=== PATIENT | female | born 1945 | race American Indian/Alaskan Native ===

== ENCOUNTER 2022-03-15 15:56 | Inpatient (IN) | payer MEDICARE, MEDICAID ==
[~2022-03-15] VITALS: Ht 165.1 cm; Wt 81.2 kg
[2022-03-15] MEDS ORDERED: NALOXONE HCL 1 MG/ML 2ML VIAL IV ONE (16:30)
[2022-03-15] MEDS ORDERED: SODIUM CHLORIDE 0.9% 1,000 ML IV ONE (17:00)
[2022-03-15 17:02] LABS: BG BASE EXCESS -0.6 mmol/L (-2.0-2.0); BG CARBOXYHEMOGLOBIN 0.2 % (0.5-1.5); BG DEOXYHEMOGLOBIN 3.5 % (0.0-5.0); BG HCO3 ACT 22.8 mmol/L (22.0-26.0); BG OXYGEN SATURATION 96.5 % (92.0-98.5); BG OXYHEMOGLOBIN 96.3 % (94.0-97.0); BG PCO2 33.7 mmHg (35.0-45.0); BG PH 7.448 (7.350-7.450); BG PO2 83.4 mmHg (75.0-100.0); BG SAMPLE SITE RIGHT BRACHIAL; BG TOTAL HEMOGLOBIN 13.5 g/dL (12.0-18.0); BG VENT MODE ROOM AIR
[2022-03-15 17:57] LABS: BASOPHILS % 0.2 % (0.0-2.0); HEMATOCRIT. 36.4 % (36.0-48.0); HEMOGLOBIN. 11.8 g/dL (12.0-16.0); LYMPHOCYTES % 7.8 % (20.0-50.0); MEAN CORPUSCULAR HEMOGLOBIN 29.7 pg (28.0-32.0); MEAN CORPUSCULAR VOLUME 91.7 fL (81.0-99.0); MEAN PLATELET VOLUME 8.1 fl (7.4-10.4); MONOCYTES % 4.6 % (2.0-8.0); NEUTROPHILS % 87.4 % (40.0-76.0); PLATELET 116 x1000/uL (130-400); RED BLOOD CELL COUNT 3.97 mill/uL (4.2-5.4); RED CELL DISTRIBUTION WIDTH 12.3 % (11.6-14.6)
[2022-03-15 18:05] LABS: INR 1.1
[2022-03-15] MEDS ORDERED: LORAZEPAM 2MG/ML CPJ IV ONE (18:30)
[2022-03-15] MEDS ORDERED: MIDAZOLAM HCL 100 MG in DEXT 5% WATER 80 ML IV ONE (18:30)
[2022-03-15] MEDS ORDERED: HEPARIN 80 UNITS/KG BOLUS IV SCH ×2 (18:30→19:30)
[2022-03-15] MEDS ORDERED: HEPARIN 25,000 UNITS PREMIX 250 ML IV SCH ×3 (18:30→19:30)
[2022-03-15] MEDS ORDERED: ETOMIDATE 2MG/ML 10ML VIAL IV ONE (18:30)
[2022-03-15 18:39] LABS: CHLORIDE 97 mEq/L (98-107)
[2022-03-15 18:47] LABS: ETHANOL BLOOD < 10 mg/dL
[2022-03-15] MEDS ORDERED: IOHEXOL-350 100 ML BOTTLE ONE ×2 (18:52→20:28)
[2022-03-15] MEDS ORDERED: LEVETIRACETAM 1000MG PREMIX 100 ML IV ONE (19:15)
[2022-03-15 19:27] LABS: CREATINE KINASE 2036 IU/L (26-192)
[2022-03-15 21:10] LABS: CLARITY URINE CLEAR (CLEAR); COLOR URINE YELLOW (YELLOW); KETONES URINE TRACE (NEGATIVE); LEUKOCYTE ESTERASE URINE NEGATIVE (NEGATIVE); NITRITE URINE NEGATIVE (NEGATIVE); OCCULT BLOOD URINE 1+ (NEGATIVE); PH URINE 5.5 (4.5-8.0); PROTEIN URINE NEGATIVE (NEGATIVE); SPECIFIC GRAVITY URINE 1.018 (1.005-1.030); UROBILINOGEN URINE 0.2 E.U./dL (0.2-1.0)
[2022-03-15 22:46] LABS: *AMPHETAMINES SCREEN URINE NEGATIVE (NEGATIVE); *BARBITURATES SCREEN URINE NEGATIVE (NEGATIVE); *BENZODIAZEPINES SCREEN URINE NEGATIVE (NEGATIVE); *COCAINE SCREEN URINE NEGATIVE (NEGATIVE); CANNABINOID URINE SCREEN NEGATIVE (NEGATIVE); METHADONE URINE SCREEN NEGATIVE (NEGATIVE); OPIATES URINE SCREEN NEGATIVE (NEGATIVE); PHENCYCLIDINE URINE SCREEN NEGATIVE (NEGATIVE)
[2022-03-15 22:49] LABS: BG BASE EXCESS -5.1 mmol/L (-2.0-2.0); BG CARBOXYHEMOGLOBIN 0.3 % (0.5-1.5); BG DEOXYHEMOGLOBIN 0.4 % (0.0-5.0); BG FRACTION INSPIRED OXYGEN 70; BG HCO3 ACT 16.6 mmol/L (22.0-26.0); BG METHEMOGLOBIN 0.1 % (0.0-1.5); BG OXYGEN SATURATION 99.6 % (92.0-98.5); BG OXYHEMOGLOBIN 99.2 % (94.0-97.0); BG PCO2 23.1 mmHg (35.0-45.0); BG PH 7.475 (7.350-7.450); BG PO2 376.7 mmHg (75.0-100.0); BG SAMPLE SITE RIGHT BRACHIAL; BG TOTAL HEMOGLOBIN 13.1 g/dL (12.0-18.0); BG VENT MODE VENT - AC
[2022-03-16] VITALS (35 sets, daily range): BP systolic 61–147; BP diastolic 29–109
[2022-03-16] MEDS ORDERED: HEPARIN BOLUS PRN aPTT <36 IV (01:30)
[2022-03-16] MEDS ORDERED: HEPARIN BOLUS PRN aPTT 37-44 IV (01:30)
[2022-03-16] MEDS ORDERED: PIPERACILLIN/TAZ 3.375G PREMIX 50 ML IV NR (12:00)
[2022-03-16] MEDS: PANTOPRAZOLE SODIUM 40 MG/VIAL IV SCH ×2 (12:47→20:15)
[2022-03-16] MEDS ORDERED: ONDANSETRON HCL 4MG/2ML INJ IV PRN (14:00)
[2022-03-16 14:59] LABS: BG BASE EXCESS -4.8 mmol/L (-2.0-2.0); BG CARBOXYHEMOGLOBIN 0.3 % (0.5-1.5); BG DEOXYHEMOGLOBIN 0.8 % (0.0-5.0); BG FRACTION INSPIRED OXYGEN 40; BG HCO3 ACT 15.6 mmol/L (22.0-26.0); BG METHEMOGLOBIN 0.3 % (0.0-1.5); BG OXYGEN SATURATION 99.2 % (92.0-98.5); BG OXYHEMOGLOBIN 98.6 % (94.0-97.0); BG PCO2 19.1 mmHg (35.0-45.0); BG PH 7.529 (7.350-7.450); BG PO2 170.1 mmHg (75.0-100.0); BG SAMPLE SITE RIGHT RADIAL; BG VENT MODE VENT - AC
[2022-03-16] MEDS ORDERED: SODIUM BICARBONATE 8.4% 1 MEQ/ML 50ML SYR IV NR (15:00)
[2022-03-16 17:40] LABS: BASOPHILS % 0.8 % (0.0-2.0); EOSINOPHILS % 0.2 % (0.0-5.0); HEMOGLOBIN. 11.8 g/dL (12.0-16.0); LYMPHOCYTES % 13.9 % (20.0-50.0); MEAN CORPUSCULAR HEMOGLOBIN 29.5 pg (28.0-32.0); MEAN CORPUSCULAR VOLUME 90.1 fL (81.0-99.0); MEAN PLATELET VOLUME 8.9 fl (7.4-10.4); MONOCYTES % 8.8 % (2.0-8.0); NEUTROPHILS % 76.3 % (40.0-76.0); PLATELET 218 x1000/uL (130-400); RED BLOOD CELL COUNT 3.99 mill/uL (4.2-5.4); RED CELL DISTRIBUTION WIDTH 12.5 % (11.6-14.6)
[2022-03-16] MEDS ORDERED: NAPR-681 PO (17:40)
[2022-03-16] MEDS ORDERED: GABA-532 PO (17:40)
[2022-03-16] MEDS ORDERED: RISP1TAB97 PO (17:40)
[2022-03-16] MEDS ORDERED: ASCO500C18 PO (17:40)
[2022-03-16] MEDS ORDERED: TRAM50TA3 PO (17:40)
[2022-03-16] MEDS ORDERED: ALPR-340 PO (17:40)
[2022-03-16] MEDS ORDERED: LOSA100T32 PO (17:40)
[2022-03-16] MEDS ORDERED: FAMO20TA8 PO (17:40)
[2022-03-16] MEDS ORDERED: POTA8CAP20 PO (17:40)
[2022-03-16 17:46] LABS: CHLORIDE 103 mEq/L (98-107)
[2022-03-16 18:04] LABS: CREATINE KINASE MB FRACTION 8.1 ng/mL (0.5-3.6)
[2022-03-16] MEDS: PHENYLEPHRINE 100 MG in DEXT 5% WATER 240 ML IV PRN (18:04)
[2022-03-16 18:07] LABS: CREATINE KINASE 1415 IU/L (26-192)
[2022-03-16] MEDS ORDERED: DEXTROSE 50% WATER 50ML SYRINGE IV PRN (20:00)
[2022-03-16] MEDS: BLOOD SUGAR DIAGNOSTIC STRIP TEST SCH (20:34)
[2022-03-16] MEDS: INSULIN LISPRO 100 UNITS/ML SUBCUT SCH (20:35)
[2022-03-16] MEDS ORDERED: PIPERACILLIN/TAZOBACTAM 3.375 G in DEXTROSE 5% WATER 50 ML IV SCH (22:00)
[2022-03-16] MEDS: PIPERACILLIN/TAZOBACTAM 3.375 G in DEXTROSE 5% WATER 50 ML IV SCH (23:11)
[2022-03-17] VITALS (92 sets, daily range): BP systolic 66–170; BP diastolic 27–116
[2022-03-17 00:15] LABS: CREATINE KINASE MB FRACTION 10.3 ng/mL (0.5-3.6)
[2022-03-17] MEDS: MIDAZOLAM HCL 100 MG in SODIUM CHLORIDE 0.9% 80 ML IV PRN (02:53)
[2022-03-17] MEDS: PHENYLEPHRINE 100 MG in DEXT 5% WATER 240 ML IV PRN ×2 (04:48→14:05)
[2022-03-17 05:49] LABS: BASOPHILS % 0.5 % (0.0-2.0); HEMATOCRIT. 34.9 % (36.0-48.0); HEMOGLOBIN. 11.7 g/dL (12.0-16.0); LYMPHOCYTES % 15.5 % (20.0-50.0); MEAN CORPUSCULAR VOLUME 89.8 fL (81.0-99.0); MONOCYTES % 9.5 % (2.0-8.0); NEUTROPHILS % 74.5 % (40.0-76.0); PLATELET 232 x1000/uL (130-400); RED BLOOD CELL COUNT 3.89 mill/uL (4.2-5.4); RED CELL DISTRIBUTION WIDTH 12.6 % (11.6-14.6)
[2022-03-17] MEDS: PIPERACILLIN/TAZOBACTAM 3.375 G in DEXTROSE 5% WATER 50 ML IV SCH ×3 (06:01→22:36)
[2022-03-17 06:16] LABS: CHLORIDE 102 mEq/L (98-107)
[2022-03-17] MEDS: INSULIN LISPRO 100 UNITS/ML SUBCUT SCH ×4 (07:51→21:00)
[2022-03-17] MEDS: BLOOD SUGAR DIAGNOSTIC STRIP TEST SCH ×4 (07:51→21:00)
[2022-03-17] MEDS: PANTOPRAZOLE SODIUM 40 MG/VIAL IV SCH ×2 (08:02→21:33)
[2022-03-17] MEDS ORDERED: DEXT 5%/0.45% NACL 1000ML 1,000 ML IV SCH (08:45)
[2022-03-17 09:15] LABS: BG BASE EXCESS -3.4 mmol/L (-2.0-2.0); BG CARBOXYHEMOGLOBIN 0.3 % (0.5-1.5); BG DEOXYHEMOGLOBIN 0.8 % (0.0-5.0); BG FRACTION INSPIRED OXYGEN 40; BG HCO3 ACT 18.1 mmol/L (22.0-26.0); BG METHEMOGLOBIN 0.3 % (0.0-1.5); BG OXYGEN SATURATION 99.2 % (92.0-98.5); BG OXYHEMOGLOBIN 98.6 % (94.0-97.0); BG PCO2 23.9 mmHg (35.0-45.0); BG PH 7.498 (7.350-7.450); BG PO2 190.6 mmHg (75.0-100.0); BG SAMPLE SITE LEFT BRACHIAL; BG TOTAL HEMOGLOBIN 12.4 g/dL (12.0-18.0); BG VENT MODE VENT - AC
[2022-03-17 09:21] LABS: CREATINE KINASE 1223 IU/L (26-192)
[2022-03-17] MEDS ORDERED: LIDOCAINE HCL 1% 10 MG/ML 10ML VIAL ONE (10:29)
[2022-03-17] MEDS: DEXT 5%/0.9% NACL 1,000 ML IV SCH (11:04)
[2022-03-17] MEDS: ENOXAPARIN 80MG/0.8ML SYR SUBCUT SCH (13:53)
[2022-03-18] VITALS (80 sets, daily range): BP systolic 96–178; BP diastolic 30–80
[2022-03-18] MEDS: DEXT 5%/0.9% NACL 1,000 ML IV SCH ×2 (00:34→12:35)
[2022-03-18] MEDS: PHENYLEPHRINE 100 MG in DEXT 5% WATER 240 ML IV PRN ×2 (02:22→12:48)
[2022-03-18] MEDS: PIPERACILLIN/TAZOBACTAM 3.375 G in DEXTROSE 5% WATER 50 ML IV SCH ×3 (06:43→21:24)
[2022-03-18 06:49] LABS: BASOPHILS % 0.4 % (0.0-2.0); EOSINOPHILS % 0.9 % (0.0-5.0); HEMATOCRIT. 30.5 % (36.0-48.0); HEMOGLOBIN. 10.1 g/dL (12.0-16.0); LYMPHOCYTES % 14.7 % (20.0-50.0); MEAN CORPUSCULAR HEMOGLOBIN 30.9 pg (28.0-32.0); MEAN CORPUSCULAR VOLUME 93.3 fL (81.0-99.0); MEAN PLATELET VOLUME 8.1 fl (7.4-10.4); MONOCYTES % 11.4 % (2.0-8.0); NEUTROPHILS % 72.6 % (40.0-76.0); PLATELET 202 x1000/uL (130-400); RED BLOOD CELL COUNT 3.27 mill/uL (4.2-5.4); RED CELL DISTRIBUTION WIDTH 12.6 % (11.6-14.6)
[2022-03-18 07:13] LABS: CHLORIDE 104 mEq/L (98-107)
[2022-03-18 08:25] LABS: BG CARBOXYHEMOGLOBIN 0.3 % (0.5-1.5); BG DEOXYHEMOGLOBIN 0.9 % (0.0-5.0); BG FRACTION INSPIRED OXYGEN 40; BG HCO3 ACT 21.1 mmol/L (22.0-26.0); BG METHEMOGLOBIN 0.4 % (0.0-1.5); BG OXYGEN SATURATION 99.1 % (92.0-98.5); BG OXYHEMOGLOBIN 98.4 % (94.0-97.0); BG PCO2 34.5 mmHg (35.0-45.0); BG PH 7.405 (7.350-7.450); BG PO2 176.2 mmHg (75.0-100.0); BG SAMPLE SITE RIGHT RADIAL; BG TOTAL HEMOGLOBIN 10.7 g/dL (12.0-18.0); BG TOTAL RESPIRATORY RATE 12 b/min; BG VENT MODE VENT - AC
[2022-03-18] MEDS ORDERED: BISACODYL 10MG SUPP PR PRN (11:30)
[2022-03-18] MEDS: INSULIN LISPRO 100 UNITS/ML SUBCUT SCH ×3 (12:32→21:00)
[2022-03-18] MEDS: BLOOD SUGAR DIAGNOSTIC STRIP TEST SCH ×3 (12:32→21:00)
[2022-03-18] MEDS: PANTOPRAZOLE SODIUM 40 MG/VIAL IV SCH ×2 (12:35→21:24)
[2022-03-18] MEDS: DOCUSATE SODIUM SUGAR FREE 100MG/10ML UDC NG SCH (12:35)
[2022-03-18] MEDS: ENOXAPARIN 80MG/0.8ML SYR SUBCUT SCH (12:36)
[2022-03-18] MEDS: IPRATROPIUM/ALBUTEROL 0.5-3(2.5)MG/3ML NEB HHN PRN (13:25)
[2022-03-18] MEDS ORDERED: SODIUM CHLORIDE 0.9% 500 ML IV ONE (14:00)
[2022-03-19] VITALS (86 sets, daily range): BP systolic 82–140; BP diastolic 35–82
[2022-03-19] MEDS: DEXT 5%/0.9% NACL 1,000 ML IV SCH ×2 (02:04→18:07)
[2022-03-19] MEDS: PIPERACILLIN/TAZOBACTAM 3.375 G in DEXTROSE 5% WATER 50 ML IV SCH ×3 (05:16→21:37)
[2022-03-19] MEDS: BLOOD SUGAR DIAGNOSTIC STRIP TEST SCH ×4 (05:16→18:19)
[2022-03-19] MEDS: INSULIN LISPRO 100 UNITS/ML SUBCUT SCH ×3 (05:16→18:00)
[2022-03-19 06:03] LABS: BASOPHILS % 0.4 % (0.0-2.0); EOSINOPHILS % 0.7 % (0.0-5.0); HEMATOCRIT. 24.7 % (36.0-48.0); HEMOGLOBIN. 8.2 g/dL (12.0-16.0); LYMPHOCYTES % 14.7 % (20.0-50.0); MEAN CORPUSCULAR HEMOGLOBIN 29.9 pg (28.0-32.0); MEAN CORPUSCULAR VOLUME 90.5 fL (81.0-99.0); MEAN PLATELET VOLUME 7.8 fl (7.4-10.4); MONOCYTES % 8.5 % (2.0-8.0); NEUTROPHILS % 75.7 % (40.0-76.0); PLATELET 170 x1000/uL (130-400); RED BLOOD CELL COUNT 2.73 mill/uL (4.2-5.4); RED CELL DISTRIBUTION WIDTH 12.4 % (11.6-14.6)
[2022-03-19] MEDS ORDERED: POTASSIUM CHLORIDE 20MEQ/PACKET PO SCH (08:00)
[2022-03-19] MEDS: DOCUSATE SODIUM SUGAR FREE 100MG/10ML UDC NG SCH (08:26)
[2022-03-19] MEDS: PANTOPRAZOLE SODIUM 40 MG/VIAL IV SCH ×2 (08:26→21:37)
[2022-03-19] MEDS: IPRATROPIUM/ALBUTEROL 0.5-3(2.5)MG/3ML NEB HHN PRN ×2 (08:42→14:01)
[2022-03-19] MEDS: PHENYLEPHRINE 100 MG in DEXT 5% WATER 240 ML IV PRN (09:00)
[2022-03-19 11:24] LABS: TOTAL IRON BINDING CAPACITY 148 ug/dL (250-450)
[2022-03-19 12:31] LABS: VITAMIN B12 SERUM 689 pg/mL (211-911)
[2022-03-19 12:45] LABS: BASOPHILS % 0.3 % (0.0-2.0); EOSINOPHILS % 0.7 % (0.0-5.0); LYMPHOCYTES % 11.7 % (20.0-50.0); MEAN CORPUSCULAR HEMOGLOBIN 30.3 pg (28.0-32.0); MEAN PLATELET VOLUME 7.7 fl (7.4-10.4); MONOCYTES % 9.2 % (2.0-8.0); NEUTROPHILS % 78.1 % (40.0-76.0); PLATELET 165 x1000/uL (130-400); RED BLOOD CELL COUNT 2.64 mill/uL (4.2-5.4); RED CELL DISTRIBUTION WIDTH 12.4 % (11.6-14.6)
[2022-03-19] MEDS: MIDODRINE HCL 5MG TABLET PO SCH ×2 (13:00→17:31)
[2022-03-19 13:37] LABS: FERRITIN 383 ng/mL (10-291)
[2022-03-19] MEDS ORDERED: BISACODYL 10MG SUPP PR NR (15:00)
[2022-03-19] MEDS: ASPIRIN 81MG TABLET PO SCH (17:31)
[2022-03-19 19:10] LABS: BG BASE EXCESS -4.2 mmol/L (-2.0-2.0); BG CARBOXYHEMOGLOBIN 0.3 % (0.5-1.5); BG DEOXYHEMOGLOBIN 0.9 % (0.0-5.0); BG FRACTION INSPIRED OXYGEN 40; BG HCO3 ACT 19.8 mmol/L (22.0-26.0); BG METHEMOGLOBIN 0.4 % (0.0-1.5); BG OXYGEN SATURATION 99.1 % (92.0-98.5); BG OXYHEMOGLOBIN 98.4 % (94.0-97.0); BG PCO2 31.9 mmHg (35.0-45.0); BG PH 7.411 (7.350-7.450); BG SAMPLE SITE RIGHT RADIAL; BG TOTAL HEMOGLOBIN 8.7 g/dL (12.0-18.0); BG VENT MODE VENT - CPAP
[2022-03-19 19:54] LABS: PROTHROMBIN TIME 10.9 sec (9.6-11.0)
[2022-03-20] VITALS (67 sets, daily range): BP systolic 105–165; BP diastolic 25–96
[2022-03-20] MEDS: BLOOD SUGAR DIAGNOSTIC STRIP TEST SCH ×4 (00:27→18:32)
[2022-03-20] MEDS: MIDAZOLAM HCL 100 MG in SODIUM CHLORIDE 0.9% 80 ML IV PRN (05:19)
[2022-03-20] MEDS: INSULIN LISPRO 100 UNITS/ML SUBCUT SCH ×4 (06:00→18:00)
[2022-03-20 06:17] LABS: BASOPHILS % 0.4 % (0.0-2.0); EOSINOPHILS % 1.7 % (0.0-5.0); HEMATOCRIT. 23.1 % (36.0-48.0); HEMOGLOBIN. 7.6 g/dL (12.0-16.0); LYMPHOCYTES % 16.3 % (20.0-50.0); MEAN CORPUSCULAR HEMOGLOBIN 30.1 pg (28.0-32.0); MEAN CORPUSCULAR VOLUME 91.4 fL (81.0-99.0); MEAN PLATELET VOLUME 7.6 fl (7.4-10.4); MONOCYTES % 9.8 % (2.0-8.0); NEUTROPHILS % 71.8 % (40.0-76.0); PLATELET 155 x1000/uL (130-400); RED BLOOD CELL COUNT 2.53 mill/uL (4.2-5.4); RED CELL DISTRIBUTION WIDTH 12.5 % (11.6-14.6)
[2022-03-20 06:30] LABS: PHOSPHORUS 1.3 mg/dL (2.5-4.9)
[2022-03-20] MEDS: PIPERACILLIN/TAZOBACTAM 3.375 G in DEXTROSE 5% WATER 50 ML IV SCH ×3 (07:05→21:07)
[2022-03-20] MEDS: ASPIRIN 81MG TABLET PO SCH (08:52)
[2022-03-20] MEDS: PANTOPRAZOLE SODIUM 40 MG/VIAL IV SCH ×2 (08:53→21:07)
[2022-03-20] MEDS: DOCUSATE SODIUM SUGAR FREE 100MG/10ML UDC NG SCH (08:54)
[2022-03-20] MEDS: MIDODRINE HCL 5MG TABLET PO SCH ×3 (09:00→17:00)
[2022-03-20] MEDS ORDERED: MAGNESIUM 2 G PREMIX 50 ML IV NR (09:00)
[2022-03-20] MEDS ORDERED: POTASSIUM PHOS,M-BASIC-D-BASIC 20 MMOL in DEXT 5% WATER 243.3333 ML IV NR (09:30)
[2022-03-20] MEDS: DEXT 5%/0.9% NACL 1,000 ML IV SCH (10:59)
[2022-03-20 18:29] LABS: BG BASE EXCESS -5.3 mmol/L (-2.0-2.0); BG CARBOXYHEMOGLOBIN 0.3 % (0.5-1.5); BG HCO3 ACT 18.7 mmol/L (22.0-26.0); BG METHEMOGLOBIN 0.1 % (0.0-1.5); BG OXYHEMOGLOBIN 98.6 % (94.0-97.0); BG PCO2 30.8 mmHg (35.0-45.0); BG PO2 167.7 mmHg (75.0-100.0); BG SAMPLE SITE RIGHT RADIAL; BG TOTAL HEMOGLOBIN 9.5 g/dL (12.0-18.0); BG VENT MODE VENT - CPAP
[2022-03-21] VITALS (43 sets, daily range): BP systolic 115–199; BP diastolic 24–114
[2022-03-21] MEDS: BLOOD SUGAR DIAGNOSTIC STRIP TEST SCH ×5 (00:11→23:51)
[2022-03-21] MEDS: DEXT 5%/0.9% NACL 1,000 ML IV SCH ×2 (03:46→20:57)
[2022-03-21 05:33] LABS: BASOPHILS % 0.6 % (0.0-2.0); HEMATOCRIT. 24.5 % (36.0-48.0); HEMOGLOBIN. 8.2 g/dL (12.0-16.0); LYMPHOCYTES % 17.4 % (20.0-50.0); MEAN CORPUSCULAR VOLUME 90.2 fL (81.0-99.0); MEAN PLATELET VOLUME 7.7 fl (7.4-10.4); MONOCYTES % 8.8 % (2.0-8.0); NEUTROPHILS % 71.2 % (40.0-76.0); PLATELET 166 x1000/uL (130-400); RED BLOOD CELL COUNT 2.72 mill/uL (4.2-5.4); RED CELL DISTRIBUTION WIDTH 12.6 % (11.6-14.6)
[2022-03-21 05:43] LABS: PHOSPHORUS 2.2 mg/dL (2.5-4.9)
[2022-03-21] MEDS: INSULIN LISPRO 100 UNITS/ML SUBCUT SCH ×4 (06:00→17:00)
[2022-03-21] MEDS: PIPERACILLIN/TAZOBACTAM 3.375 G in DEXTROSE 5% WATER 50 ML IV SCH ×2 (06:17→14:30)
[2022-03-21] MEDS: MIDODRINE HCL 5MG TABLET PO SCH ×3 (08:17→16:25)
[2022-03-21] MEDS: DOCUSATE SODIUM SUGAR FREE 100MG/10ML UDC NG SCH (08:24)
[2022-03-21] MEDS: PANTOPRAZOLE SODIUM 40 MG/VIAL IV SCH ×2 (08:24→20:57)
[2022-03-21] MEDS: ASPIRIN 81MG TABLET PO SCH (08:24)
[2022-03-21] MEDS ORDERED: POTASSIUM CHLORIDE 20MEQ TABLET SR PO NR (08:45)
[2022-03-21] MEDS ORDERED: POTASSIUM CHLORIDE 20MEQ/PACKET PO ONE (09:00)
[2022-03-21] MEDS ORDERED: ENOXAPARIN 30MG/0.3ML SYR SUBCUT NR (10:15)
[2022-03-21 11:35] LABS: BG BASE EXCESS -4.4 mmol/L (-2.0-2.0); BG CARBOXYHEMOGLOBIN 0.3 % (0.5-1.5); BG DEOXYHEMOGLOBIN 2.5 % (0.0-5.0); BG FRACTION INSPIRED OXYGEN 21; BG HCO3 ACT 19.3 mmol/L (22.0-26.0); BG METHEMOGLOBIN 0.2 % (0.0-1.5); BG OXYGEN SATURATION 97.5 % (92.0-98.5); BG PCO2 30.2 mmHg (35.0-45.0); BG PH 7.424 (7.350-7.450); BG PO2 99.3 mmHg (75.0-100.0); BG SAMPLE SITE RIGHT RADIAL; BG TOTAL HEMOGLOBIN 8.5 g/dL (12.0-18.0); BG VENT MODE ROOM AIR
[2022-03-21 12:57] LABS: PHOSPHORUS 2.2 mg/dL (2.5-4.9)
[2022-03-21] MEDS ORDERED: POTASSIUM PHOS,M-BASIC-D-BASIC 10 MMOL in DEXT 5% WATER 246.6667 ML IV ONE (14:00)
[2022-03-21] MEDS: METHYLPREDNISOLONE SOD SUCC 40 MG/ML VIAL IV SCH (16:45)
[2022-03-22] VITALS (33 sets, daily range): BP systolic 123–173; BP diastolic 52–104
[2022-03-22 05:09] LABS: HEMATOCRIT. 23.8 % (36.0-48.0); HEMOGLOBIN. 8.1 g/dL (12.0-16.0); MEAN CORPUSCULAR VOLUME 90.7 fL (81.0-99.0); MEAN PLATELET VOLUME 7.3 fl (7.4-10.4); PLATELET 181 x1000/uL (130-400); RED BLOOD CELL COUNT 2.62 mill/uL (4.2-5.4); RED CELL DISTRIBUTION WIDTH 12.5 % (11.6-14.6)
[2022-03-22] MEDS: BLOOD SUGAR DIAGNOSTIC STRIP TEST SCH ×3 (05:10→17:41)
[2022-03-22 05:16] LABS: PHOSPHORUS 2.2 mg/dL (2.5-4.9)
[2022-03-22] MEDS: INSULIN LISPRO 100 UNITS/ML SUBCUT SCH ×4 (05:17→17:38)
[2022-03-22 07:15] LABS: PLATELET ESTIMATE NORMAL
[2022-03-22] MEDS: MIDODRINE HCL 5MG TABLET PO SCH ×3 (08:26→17:38)
[2022-03-22] MEDS: DOCUSATE SODIUM SUGAR FREE 100MG/10ML UDC NG SCH (08:50)
[2022-03-22] MEDS: PANTOPRAZOLE SODIUM 40 MG/VIAL IV SCH ×2 (08:50→21:28)
[2022-03-22] MEDS: METHYLPREDNISOLONE SOD SUCC 40 MG/ML VIAL IV SCH (08:50)
[2022-03-22] MEDS: ASPIRIN 81MG TABLET PO SCH (08:50)
[2022-03-22] MEDS: DEXT 5%/0.9% NACL 1,000 ML IV SCH (12:30)
[2022-03-22] MEDS ORDERED: POTASSIUM PHOS,M-BASIC-D-BASIC 10 MMOL in DEXT 5% WATER 246.6667 ML IV SCH (13:30)
[2022-03-23] VITALS (13 sets, daily range): BP systolic 140–178; BP diastolic 68–118
[2022-03-23] MEDS: DEXT 5%/0.9% NACL 1,000 ML IV SCH (05:39)
[2022-03-23] MEDS: BLOOD SUGAR DIAGNOSTIC STRIP TEST SCH ×4 (05:40→17:19)
[2022-03-23] MEDS: INSULIN LISPRO 100 UNITS/ML SUBCUT SCH ×4 (06:00→17:19)
[2022-03-23 08:09] LABS: BASOPHILS % 0.4 % (0.0-2.0); EOSINOPHILS % 0.1 % (0.0-5.0); HEMATOCRIT. 22.5 % (36.0-48.0); HEMOGLOBIN. 7.7 g/dL (12.0-16.0); LYMPHOCYTES % 15.9 % (20.0-50.0); MEAN CORPUSCULAR VOLUME 90.9 fL (81.0-99.0); MEAN PLATELET VOLUME 7.5 fl (7.4-10.4); MONOCYTES % 7.6 % (2.0-8.0); PLATELET 186 x1000/uL (130-400); RED BLOOD CELL COUNT 2.48 mill/uL (4.2-5.4); RED CELL DISTRIBUTION WIDTH 12.6 % (11.6-14.6)
[2022-03-23 08:12] LABS: PHOSPHORUS 1.8 mg/dL (2.5-4.9)
[2022-03-23] MEDS: ASPIRIN 81MG TABLET PO SCH (08:40)
[2022-03-23] MEDS: METHYLPREDNISOLONE SOD SUCC 40 MG/ML VIAL IV SCH (08:40)
[2022-03-23] MEDS: DOCUSATE SODIUM SUGAR FREE 100MG/10ML UDC NG SCH (08:40)
[2022-03-23] MEDS: MIDODRINE HCL 5MG TABLET PO SCH (08:40)
[2022-03-23] MEDS: PANTOPRAZOLE SODIUM 40 MG/VIAL IV SCH ×2 (08:40→21:54)
[2022-03-23] MEDS ORDERED: POTASSIUM PHOS,M-BASIC-D-BASIC 20 MMOL in DEXT 5% WATER 243.3333 ML IV SCH (10:30)
[2022-03-23] MEDS: CLONIDINE 0.1MG TABLET PO PRN (11:21)
[2022-03-23] MEDS: AMLODIPINE 2.5MG TABLET PO SCH (21:54)
[2022-03-24] VITALS: BP 154/70
[2022-03-24 04:00] VITALS: BP 173/87
[2022-03-24 05:46] LABS: BASOPHILS % 0.4 % (0.0-2.0); EOSINOPHILS % 0.1 % (0.0-5.0); HEMATOCRIT. 26.9 % (36.0-48.0); HEMOGLOBIN. 8.8 g/dL (12.0-16.0); LYMPHOCYTES % 12.2 % (20.0-50.0); MEAN CORPUSCULAR HEMOGLOBIN 30.8 pg (28.0-32.0); MEAN CORPUSCULAR VOLUME 93.9 fL (81.0-99.0); MEAN PLATELET VOLUME 8.1 fl (7.4-10.4); MONOCYTES % 7.7 % (2.0-8.0); NEUTROPHILS % 79.6 % (40.0-76.0); PLATELET 208 x1000/uL (130-400); RED BLOOD CELL COUNT 2.87 mill/uL (4.2-5.4)
[2022-03-24] MEDS: INSULIN LISPRO 100 UNITS/ML SUBCUT SCH ×4 (06:00→18:13)
[2022-03-24] MEDS: HYDRALAZINE 20MG/ML VIAL IV PRN (06:13)
[2022-03-24] MEDS: ATORVASTATIN CALCIUM 40MG TABLET PO SCH ×2 (06:13→20:38)
[2022-03-24] MEDS: BLOOD SUGAR DIAGNOSTIC STRIP TEST SCH ×4 (06:33→17:56)
[2022-03-24 08:00] VITALS: BP 137/73
[2022-03-24] MEDS: DOCUSATE SODIUM SUGAR FREE 100MG/10ML UDC NG SCH ×2 (08:13→08:25)
[2022-03-24] MEDS: PANTOPRAZOLE SODIUM 40 MG/VIAL IV SCH ×2 (08:13→20:37)
[2022-03-24] MEDS: ASPIRIN 81MG TABLET PO SCH (08:13)
[2022-03-24] MEDS: AMLODIPINE 2.5MG TABLET PO SCH ×2 (08:13→20:38)
[2022-03-24] MEDS: METHYLPREDNISOLONE SOD SUCC 40 MG/ML VIAL IV SCH (08:13)
[2022-03-24 12:00] VITALS: BP 167/80
[2022-03-24 16:00] VITALS: BP 162/83
[2022-03-24] MEDS: CLONIDINE 0.1MG TABLET PO PRN (18:12)
[2022-03-24 20:00] VITALS: BP 173/66
[2022-03-25] VITALS (7 sets, daily range): BP systolic 149–176; BP diastolic 73–130
[2022-03-25] MEDS: HYDRALAZINE 20MG/ML VIAL IV PRN (04:06)
[2022-03-25 05:58] LABS: PROTHROMBIN TIME 10.9 sec (9.6-11.0)
[2022-03-25] MEDS: INSULIN LISPRO 100 UNITS/ML SUBCUT SCH ×4 (06:00→18:00)
[2022-03-25 06:13] LABS: CHLORIDE 112 mEq/L (98-107)
[2022-03-25 06:24] LABS: BASOPHILS % 0.3 % (0.0-2.0); EOSINOPHILS % 0.1 % (0.0-5.0); HEMATOCRIT. 26.5 % (36.0-48.0); HEMOGLOBIN. 8.8 g/dL (12.0-16.0); LYMPHOCYTES % 13.2 % (20.0-50.0); MEAN CORPUSCULAR HEMOGLOBIN 30.5 pg (28.0-32.0); MEAN CORPUSCULAR VOLUME 91.6 fL (81.0-99.0); MEAN PLATELET VOLUME 7.8 fl (7.4-10.4); MONOCYTES % 8.7 % (2.0-8.0); NEUTROPHILS % 77.7 % (40.0-76.0); PLATELET 228 x1000/uL (130-400); RED BLOOD CELL COUNT 2.89 mill/uL (4.2-5.4)
[2022-03-25 06:28] LABS: PHOSPHORUS 2.5 mg/dL (2.5-4.9)
[2022-03-25] MEDS: BLOOD SUGAR DIAGNOSTIC STRIP TEST SCH ×4 (06:52→18:41)
[2022-03-25] MEDS: ASPIRIN 81MG TABLET PO SCH (09:00)
[2022-03-25] MEDS: DOCUSATE SODIUM SUGAR FREE 100MG/10ML UDC NG SCH (09:00)
[2022-03-25] MEDS: METHYLPREDNISOLONE SOD SUCC 40 MG/ML VIAL IV SCH (09:00)
[2022-03-25] MEDS: AMLODIPINE 2.5MG TABLET PO SCH (09:01)
[2022-03-25] MEDS: PANTOPRAZOLE SODIUM 40 MG/VIAL IV SCH ×2 (09:01→20:53)
[2022-03-25] MEDS: ATORVASTATIN CALCIUM 40MG TABLET PO SCH (20:53)
[2022-03-25] MEDS: AMLODIPINE 5MG TABLET PO SCH (21:06)
[2022-03-26] VITALS: BP 169/92
[2022-03-26] MEDS: BLOOD SUGAR DIAGNOSTIC STRIP TEST SCH ×5 (00:01→23:34)
[2022-03-26] MEDS: CLONIDINE 0.1MG TABLET PO PRN (00:43)
[2022-03-26 04:00] VITALS: BP 147/79
[2022-03-26] MEDS: INSULIN LISPRO 100 UNITS/ML SUBCUT SCH ×5 (06:00→23:34)
[2022-03-26 08:00] VITALS: BP 143/72
[2022-03-26] MEDS: DOCUSATE SODIUM SUGAR FREE 100MG/10ML UDC NG SCH (09:00)
[2022-03-26] MEDS: PANTOPRAZOLE SODIUM 40 MG/VIAL IV SCH ×2 (09:40→21:03)
[2022-03-26] MEDS: ASPIRIN 81MG TABLET PO SCH (09:41)
[2022-03-26] MEDS: AMLODIPINE 5MG TABLET PO SCH ×2 (09:41→21:04)
[2022-03-26] MEDS: MAGNESIUM OXIDE 400MG TABLET PO SCH (09:41)
[2022-03-26 12:00] VITALS: BP 134/67
[2022-03-26 16:00] VITALS: BP 149/74
[2022-03-26 16:03] LABS: BASOPHILS % 0.3 % (0.0-2.0); EOSINOPHILS % 0.4 % (0.0-5.0); HEMATOCRIT. 29.6 % (36.0-48.0); HEMOGLOBIN. 9.7 g/dL (12.0-16.0); LYMPHOCYTES % 9.3 % (20.0-50.0); MEAN CORPUSCULAR HEMOGLOBIN 30.5 pg (28.0-32.0); MEAN CORPUSCULAR VOLUME 93.2 fL (81.0-99.0); MEAN PLATELET VOLUME 7.9 fl (7.4-10.4); PLATELET 235 x1000/uL (130-400); RED BLOOD CELL COUNT 3.17 mill/uL (4.2-5.4); RED CELL DISTRIBUTION WIDTH 13.9 % (11.6-14.6)
[2022-03-26 16:33] LABS: CHLORIDE 112 mEq/L (98-107)
[2022-03-26 20:00] VITALS: BP 184/76
[2022-03-26] MEDS: ENOXAPARIN 30MG/0.3ML SYR SUBCUT SCH (21:04)
[2022-03-26] MEDS: ATORVASTATIN CALCIUM 40MG TABLET PO SCH (21:04)
[2022-03-27] VITALS: BP 148/70
[2022-03-27 04:00] VITALS: BP 167/85
[2022-03-27] MEDS: HYDRALAZINE 20MG/ML VIAL IV PRN (04:41)
[2022-03-27] MEDS: INSULIN LISPRO 100 UNITS/ML SUBCUT SCH ×4 (05:59→23:55)
[2022-03-27] MEDS: BLOOD SUGAR DIAGNOSTIC STRIP TEST SCH ×4 (05:59→23:55)
[2022-03-27 07:14] LABS: BASOPHILS % 0.3 % (0.0-2.0); EOSINOPHILS % 0.9 % (0.0-5.0); HEMATOCRIT. 29.2 % (36.0-48.0); HEMOGLOBIN. 9.8 g/dL (12.0-16.0); MEAN CORPUSCULAR HEMOGLOBIN 30.4 pg (28.0-32.0); MEAN CORPUSCULAR VOLUME 90.3 fL (81.0-99.0); MONOCYTES % 6.6 % (2.0-8.0); NEUTROPHILS % 80.2 % (40.0-76.0); PLATELET 271 x1000/uL (130-400); RED BLOOD CELL COUNT 3.24 mill/uL (4.2-5.4); RED CELL DISTRIBUTION WIDTH 13.5 % (11.6-14.6)
[2022-03-27 07:19] LABS: PROTHROMBIN TIME 10.8 sec (9.6-11.0)
[2022-03-27 08:00] VITALS: BP 147/71
[2022-03-27 08:33] LABS: CHLORIDE 110 mEq/L (98-107)
[2022-03-27] MEDS: DOCUSATE SODIUM SUGAR FREE 100MG/10ML UDC NG SCH (09:00)
[2022-03-27] MEDS: ASPIRIN 81MG TABLET PO SCH (09:03)
[2022-03-27] MEDS: PANTOPRAZOLE SODIUM 40 MG/VIAL IV SCH ×2 (09:03→20:41)
[2022-03-27] MEDS: MAGNESIUM OXIDE 400MG TABLET PO SCH (09:04)
[2022-03-27] MEDS: AMLODIPINE 5MG TABLET PO SCH ×2 (09:04→20:41)
[2022-03-27] MEDS: ENOXAPARIN 30MG/0.3ML SYR SUBCUT SCH (09:05)
[2022-03-27 12:00] VITALS: BP 149/67
[2022-03-27 16:00] VITALS: BP 150/69
[2022-03-27] MEDS: ACETAMINOPHEN 325MG TABLET PO PRN (16:06)
[2022-03-27 20:00] VITALS: BP 153/87
[2022-03-27] MEDS: ENOXAPARIN 40MG/0.4ML SYR SUBCUT SCH (20:42)
[2022-03-27] MEDS: ATORVASTATIN CALCIUM 40MG TABLET PO SCH (20:42)
[2022-03-28] VITALS: BP 148/79
[2022-03-28 04:00] VITALS: BP 148/75
[2022-03-28] MEDS: INSULIN LISPRO 100 UNITS/ML SUBCUT SCH ×3 (06:00→17:26)
[2022-03-28] MEDS: BLOOD SUGAR DIAGNOSTIC STRIP TEST SCH ×3 (06:56→17:26)
[2022-03-28 08:00] VITALS: BP 125/80
[2022-03-28] MEDS: AMLODIPINE 5MG TABLET PO SCH ×3 (09:00→21:57)
[2022-03-28] MEDS: MAGNESIUM OXIDE 400MG TABLET PO SCH (09:28)
[2022-03-28] MEDS: PANTOPRAZOLE SODIUM 40 MG/VIAL IV SCH ×2 (09:28→21:56)
[2022-03-28] MEDS: ASPIRIN 81MG TABLET PO SCH (09:28)
[2022-03-28] MEDS: DOCUSATE SODIUM SUGAR FREE 100MG/10ML UDC NG SCH (09:28)
[2022-03-28] MEDS: ENOXAPARIN 40MG/0.4ML SYR SUBCUT SCH ×2 (09:29→21:57)
[2022-03-28 11:42] LABS: BASOPHILS % 0.4 % (0.0-2.0); EOSINOPHILS % 1.4 % (0.0-5.0); HEMATOCRIT. 27.1 % (36.0-48.0); HEMOGLOBIN. 9.2 g/dL (12.0-16.0); MEAN CORPUSCULAR HEMOGLOBIN 31.2 pg (28.0-32.0); MEAN CORPUSCULAR VOLUME 92.2 fL (81.0-99.0); MEAN PLATELET VOLUME 8.5 fl (7.4-10.4); MONOCYTES % 6.3 % (2.0-8.0); NEUTROPHILS % 79.9 % (40.0-76.0); PLATELET 245 x1000/uL (130-400); RED BLOOD CELL COUNT 2.94 mill/uL (4.2-5.4); RED CELL DISTRIBUTION WIDTH 13.6 % (11.6-14.6)
[2022-03-28 11:47] LABS: CHLORIDE 110 mEq/L (98-107)
[2022-03-28 12:00] VITALS: BP 133/85
[2022-03-28 16:00] VITALS: BP 145/88
[2022-03-28 20:00] VITALS: BP 158/80
[2022-03-28] MEDS: ATORVASTATIN CALCIUM 40MG TABLET PO SCH (21:56)
[2022-03-29] VITALS: BP 114/68
[2022-03-29] MEDS: BLOOD SUGAR DIAGNOSTIC STRIP TEST SCH ×4 (00:35→18:01)
[2022-03-29 04:00] VITALS: BP 150/72
[2022-03-29] MEDS: INSULIN LISPRO 100 UNITS/ML SUBCUT SCH ×4 (05:17→18:00)
[2022-03-29 06:59] LABS: BASOPHILS % 0.5 % (0.0-2.0); EOSINOPHILS % 1.5 % (0.0-5.0); HEMATOCRIT. 27.8 % (36.0-48.0); HEMOGLOBIN. 9.3 g/dL (12.0-16.0); LYMPHOCYTES % 13.5 % (20.0-50.0); MEAN CORPUSCULAR HEMOGLOBIN 30.5 pg (28.0-32.0); MEAN CORPUSCULAR VOLUME 91.4 fL (81.0-99.0); MEAN PLATELET VOLUME 8.3 fl (7.4-10.4); MONOCYTES % 6.7 % (2.0-8.0); NEUTROPHILS % 77.8 % (40.0-76.0); PLATELET 283 x1000/uL (130-400); RED BLOOD CELL COUNT 3.04 mill/uL (4.2-5.4); RED CELL DISTRIBUTION WIDTH 13.7 % (11.6-14.6)
[2022-03-29 07:27] LABS: CHLORIDE 110 mEq/L (98-107)
[2022-03-29 08:00] VITALS: BP 158/72
[2022-03-29] MEDS: PANTOPRAZOLE SODIUM 40 MG/VIAL IV SCH ×2 (09:22→21:50)
[2022-03-29] MEDS: ENOXAPARIN 40MG/0.4ML SYR SUBCUT SCH ×2 (09:22→21:51)
[2022-03-29] MEDS: AMLODIPINE 5MG TABLET PO SCH ×2 (09:23→21:51)
[2022-03-29] MEDS: ASPIRIN 81MG TABLET PO SCH (09:23)
[2022-03-29] MEDS: DOCUSATE SODIUM SUGAR FREE 100MG/10ML UDC NG SCH (09:23)
[2022-03-29] MEDS: MAGNESIUM OXIDE 400MG TABLET PO SCH (09:24)
[2022-03-29 12:00] VITALS: BP 142/77
[2022-03-29 16:00] VITALS: BP 156/64
[2022-03-29 20:00] VITALS: BP 169/88
[2022-03-29] MEDS: ATORVASTATIN CALCIUM 40MG TABLET PO SCH (21:50)
[2022-03-30] VITALS: BP 165/86
[2022-03-30] MEDS: BLOOD SUGAR DIAGNOSTIC STRIP TEST SCH ×5 (00:53→23:26)
[2022-03-30 04:00] VITALS: BP 135/67
[2022-03-30] MEDS: INSULIN LISPRO 100 UNITS/ML SUBCUT SCH ×5 (05:46→23:26)
[2022-03-30 06:12] LABS: BASOPHILS % 0.7 % (0.0-2.0); EOSINOPHILS % 0.8 % (0.0-5.0); HEMATOCRIT. 28.3 % (36.0-48.0); HEMOGLOBIN. 9.4 g/dL (12.0-16.0); LYMPHOCYTES % 12.7 % (20.0-50.0); MEAN CORPUSCULAR HEMOGLOBIN 30.7 pg (28.0-32.0); MEAN CORPUSCULAR VOLUME 91.8 fL (81.0-99.0); MEAN PLATELET VOLUME 8.4 fl (7.4-10.4); MONOCYTES % 7.1 % (2.0-8.0); NEUTROPHILS % 78.7 % (40.0-76.0); PLATELET 292 x1000/uL (130-400); RED BLOOD CELL COUNT 3.08 mill/uL (4.2-5.4); RED CELL DISTRIBUTION WIDTH 13.7 % (11.6-14.6)
[2022-03-30 08:48] VITALS: BP 144/77
[2022-03-30] MEDS: PANTOPRAZOLE SODIUM 40 MG/VIAL IV SCH ×2 (09:00→21:43)
[2022-03-30] MEDS: ASPIRIN 81MG TABLET PO SCH (09:59)
[2022-03-30] MEDS: DOCUSATE SODIUM SUGAR FREE 100MG/10ML UDC NG SCH (09:59)
[2022-03-30] MEDS: ENOXAPARIN 40MG/0.4ML SYR SUBCUT SCH (09:59)
[2022-03-30] MEDS: MAGNESIUM OXIDE 400MG TABLET PO SCH (09:59)
[2022-03-30] MEDS: AMLODIPINE 5MG TABLET PO SCH ×2 (09:59→21:44)
[2022-03-30 12:11] VITALS: BP 147/72
[2022-03-30 15:49] VITALS: BP 145/73
[2022-03-30 20:00] VITALS: BP 161/89
[2022-03-30] MEDS: ATORVASTATIN CALCIUM 40MG TABLET PO SCH (21:44)
[2022-03-30] MEDS: ENOXAPARIN 60MG/0.6ML SYR SUBCUT SCH (21:44)
[2022-03-31] VITALS: BP 155/81
[2022-03-31 04:00] VITALS: BP 150/79
[2022-03-31] MEDS: BLOOD SUGAR DIAGNOSTIC STRIP TEST SCH ×3 (05:39→17:44)
[2022-03-31] MEDS: INSULIN LISPRO 100 UNITS/ML SUBCUT SCH ×3 (05:39→17:45)
[2022-03-31 06:31] LABS: BASOPHILS % 0.8 % (0.0-2.0); EOSINOPHILS % 1.3 % (0.0-5.0); HEMOGLOBIN. 9.3 g/dL (12.0-16.0); LYMPHOCYTES % 16.1 % (20.0-50.0); MEAN CORPUSCULAR HEMOGLOBIN 30.5 pg (28.0-32.0); MEAN CORPUSCULAR VOLUME 92.3 fL (81.0-99.0); MEAN PLATELET VOLUME 8.4 fl (7.4-10.4); MONOCYTES % 7.6 % (2.0-8.0); NEUTROPHILS % 74.2 % (40.0-76.0); PLATELET 290 x1000/uL (130-400); RED BLOOD CELL COUNT 3.04 mill/uL (4.2-5.4); RED CELL DISTRIBUTION WIDTH 13.9 % (11.6-14.6)
[2022-03-31 08:00] VITALS: BP 155/78
[2022-03-31] MEDS: ENOXAPARIN 60MG/0.6ML SYR SUBCUT SCH ×2 (09:33→21:35)
[2022-03-31] MEDS: ASPIRIN 81MG TABLET PO SCH (09:34)
[2022-03-31] MEDS: MAGNESIUM OXIDE 400MG TABLET PO SCH (09:34)
[2022-03-31] MEDS: AMLODIPINE 5MG TABLET PO SCH ×2 (09:34→21:34)
[2022-03-31] MEDS: PANTOPRAZOLE SODIUM 40 MG/VIAL IV SCH ×2 (09:34→21:35)
[2022-03-31] MEDS: DOCUSATE SODIUM SUGAR FREE 100MG/10ML UDC NG SCH (09:34)
[2022-03-31 12:00] VITALS: BP 155/78
[2022-03-31 16:00] VITALS: BP 145/73
[2022-03-31 20:00] VITALS: BP 165/88
[2022-03-31] MEDS: ATORVASTATIN CALCIUM 40MG TABLET PO SCH (21:34)
[2022-04-01] VITALS: BP 162/77
[2022-04-01 04:00] VITALS: BP 155/83
[2022-04-01] MEDS: INSULIN LISPRO 100 UNITS/ML SUBCUT SCH ×5 (06:00→23:52)
[2022-04-01] MEDS: BLOOD SUGAR DIAGNOSTIC STRIP TEST SCH ×5 (06:16→23:44)
[2022-04-01 07:45] LABS: BASOPHILS % 0.8 % (0.0-2.0); EOSINOPHILS % 0.7 % (0.0-5.0); HEMATOCRIT. 27.6 % (36.0-48.0); HEMOGLOBIN. 9.1 g/dL (12.0-16.0); LYMPHOCYTES % 13.9 % (20.0-50.0); MEAN CORPUSCULAR HEMOGLOBIN 30.7 pg (28.0-32.0); MEAN CORPUSCULAR VOLUME 93.1 fL (81.0-99.0); MEAN PLATELET VOLUME 8.5 fl (7.4-10.4); MONOCYTES % 8.2 % (2.0-8.0); NEUTROPHILS % 76.4 % (40.0-76.0); PLATELET 278 x1000/uL (130-400); RED BLOOD CELL COUNT 2.96 mill/uL (4.2-5.4); RED CELL DISTRIBUTION WIDTH 13.3 % (11.6-14.6)
[2022-04-01 08:00] VITALS: BP 137/66
[2022-04-01] MEDS: PANTOPRAZOLE SODIUM 40 MG/VIAL IV SCH ×2 (08:57→21:25)
[2022-04-01] MEDS: MAGNESIUM OXIDE 400MG TABLET PO SCH (08:58)
[2022-04-01] MEDS: AMLODIPINE 5MG TABLET PO SCH (08:58)
[2022-04-01] MEDS: DOCUSATE SODIUM SUGAR FREE 100MG/10ML UDC NG SCH (08:58)
[2022-04-01] MEDS: ASPIRIN 81MG TABLET PO SCH (08:58)
[2022-04-01] MEDS: ENOXAPARIN 60MG/0.6ML SYR SUBCUT SCH ×2 (08:59→21:26)
[2022-04-01] MEDS: METOPROLOL TARTRATE 25MG TABLET PO SCH ×2 (11:52→21:46)
[2022-04-01 11:53] VITALS: BP 154/73
[2022-04-01] MEDS ORDERED: ALBUTEROL (0.083%) 2.5MG/3ML NEB HHN PRN (12:15)
[2022-04-01] MEDS ORDERED: IPRATROPIUM BROMIDE (0.02%) 0.5MG/2.5ML NEB HHN PRN (12:15)
[2022-04-01 16:00] VITALS: BP 144/74
[2022-04-01 20:00] VITALS: BP 145/75
[2022-04-01] MEDS: ATORVASTATIN CALCIUM 40MG TABLET PO SCH (21:45)
[2022-04-02] VITALS: BP 149/75
[2022-04-02 03:10] LABS: BASOPHILS % 0.7 % (0.0-2.0); HEMOGLOBIN. 9.2 g/dL (12.0-16.0); LYMPHOCYTES % 13.1 % (20.0-50.0); MEAN CORPUSCULAR HEMOGLOBIN 30.6 pg (28.0-32.0); MEAN CORPUSCULAR VOLUME 92.7 fL (81.0-99.0); MEAN PLATELET VOLUME 8.2 fl (7.4-10.4); MONOCYTES % 9.1 % (2.0-8.0); NEUTROPHILS % 76.1 % (40.0-76.0); PLATELET 299 x1000/uL (130-400); RED BLOOD CELL COUNT 3.02 mill/uL (4.2-5.4); RED CELL DISTRIBUTION WIDTH 13.4 % (11.6-14.6)
[2022-04-02 03:16] LABS: PROTHROMBIN TIME 10.7 sec (9.6-11.0)
[2022-04-02 04:00] VITALS: BP 156/77
[2022-04-02] MEDS: INSULIN LISPRO 100 UNITS/ML SUBCUT SCH ×4 (06:00→23:55)
[2022-04-02] MEDS: BLOOD SUGAR DIAGNOSTIC STRIP TEST SCH ×4 (06:17→23:47)
[2022-04-02 08:00] VITALS: BP 150/86
[2022-04-02] MEDS: MAGNESIUM OXIDE 400MG TABLET PO SCH (09:00)
[2022-04-02] MEDS: PANTOPRAZOLE SODIUM 40 MG/VIAL IV SCH ×2 (09:00→20:31)
[2022-04-02] MEDS: DOCUSATE SODIUM SUGAR FREE 100MG/10ML UDC NG SCH (10:59)
[2022-04-02] MEDS: ASPIRIN 81MG TABLET PO SCH (10:59)
[2022-04-02] MEDS: METOPROLOL TARTRATE 25MG TABLET PO SCH ×2 (11:00→20:32)
[2022-04-02] MEDS: ENOXAPARIN 60MG/0.6ML SYR SUBCUT SCH ×2 (11:01→20:31)
[2022-04-02 12:00] VITALS: BP 161/77
[2022-04-02 16:00] VITALS: BP 141/73
[2022-04-02 20:00] VITALS: BP 162/86
[2022-04-02] MEDS: ATORVASTATIN CALCIUM 40MG TABLET PO SCH (20:31)
[2022-04-03] VITALS: BP 157/83
[2022-04-03 04:00] VITALS: BP 152/81
[2022-04-03] MEDS: INSULIN LISPRO 100 UNITS/ML SUBCUT SCH ×3 (06:00→17:24)
[2022-04-03] MEDS: BLOOD SUGAR DIAGNOSTIC STRIP TEST SCH ×3 (06:12→17:24)
[2022-04-03 06:44] LABS: BASOPHILS % 0.7 % (0.0-2.0); EOSINOPHILS % 0.7 % (0.0-5.0); HEMATOCRIT. 28.9 % (36.0-48.0); HEMOGLOBIN. 9.6 g/dL (12.0-16.0); LYMPHOCYTES % 10.3 % (20.0-50.0); MEAN CORPUSCULAR HEMOGLOBIN 30.9 pg (28.0-32.0); MEAN CORPUSCULAR VOLUME 92.9 fL (81.0-99.0); MEAN PLATELET VOLUME 8.7 fl (7.4-10.4); MONOCYTES % 8.6 % (2.0-8.0); NEUTROPHILS % 79.7 % (40.0-76.0); PLATELET 266 x1000/uL (130-400); RED BLOOD CELL COUNT 3.11 mill/uL (4.2-5.4); RED CELL DISTRIBUTION WIDTH 13.4 % (11.6-14.6)
[2022-04-03 06:48] LABS: CHLORIDE 112 mEq/L (98-107)
[2022-04-03 08:00] VITALS: BP 158/66
[2022-04-03] MEDS: MAGNESIUM OXIDE 400MG TABLET PO SCH (09:00)
[2022-04-03] MEDS: DOCUSATE SODIUM SUGAR FREE 100MG/10ML UDC NG SCH (09:37)
[2022-04-03] MEDS: METOPROLOL TARTRATE 25MG TABLET PO SCH ×2 (09:38→20:38)
[2022-04-03] MEDS: PANTOPRAZOLE SODIUM 40 MG/VIAL IV SCH ×2 (09:38→20:38)
[2022-04-03] MEDS: ASPIRIN 81MG TABLET PO SCH (09:38)
[2022-04-03] MEDS: ENOXAPARIN 60MG/0.6ML SYR SUBCUT SCH ×2 (09:39→20:34)
[2022-04-03 12:00] VITALS: BP 144/66
[2022-04-03 16:00] VITALS: BP 156/75
[2022-04-03 20:00] VITALS: BP 147/87
[2022-04-03] MEDS: ATORVASTATIN CALCIUM 40MG TABLET PO SCH (20:34)
[2022-04-04] VITALS: BP 135/80
[2022-04-04] MEDS: INSULIN LISPRO 100 UNITS/ML SUBCUT SCH ×4 (00:31→17:02)
[2022-04-04] MEDS: BLOOD SUGAR DIAGNOSTIC STRIP TEST SCH ×4 (00:31→17:02)
[2022-04-04] MEDS: ACETAMINOPHEN 325MG TABLET PO PRN (03:55)
[2022-04-04 04:00] VITALS: BP 164/84
[2022-04-04 08:21] VITALS: BP 167/80
[2022-04-04] MEDS: DOCUSATE SODIUM SUGAR FREE 100MG/10ML UDC NG SCH (10:05)
[2022-04-04] MEDS: ASPIRIN 81MG TABLET PO SCH (10:05)
[2022-04-04] MEDS: METOPROLOL TARTRATE 25MG TABLET PO SCH ×2 (10:05→21:00)
[2022-04-04] MEDS: PANTOPRAZOLE SODIUM 40 MG/VIAL IV SCH ×2 (10:05→20:59)
[2022-04-04] MEDS: MAGNESIUM OXIDE 400MG TABLET PO SCH (10:05)
[2022-04-04] MEDS: ENOXAPARIN 60MG/0.6ML SYR SUBCUT SCH ×2 (10:06→20:59)
[2022-04-04 11:49] VITALS: BP 141/74
[2022-04-04 15:49] VITALS: BP 154/83
[2022-04-04 20:00] VITALS: BP 146/73
[2022-04-04] MEDS: ATORVASTATIN CALCIUM 40MG TABLET PO SCH (20:59)
[2022-04-05] VITALS: BP 139/75
[2022-04-05 04:00] VITALS: BP 150/75
[2022-04-05] MEDS: BLOOD SUGAR DIAGNOSTIC STRIP TEST SCH ×4 (06:33→17:30)
[2022-04-05 06:35] LABS: BASOPHILS % 0.7 % (0.0-2.0); EOSINOPHILS % 0.5 % (0.0-5.0); LYMPHOCYTES % 17.4 % (20.0-50.0); MEAN CORPUSCULAR HEMOGLOBIN 31.1 pg (28.0-32.0); MEAN CORPUSCULAR VOLUME 92.9 fL (81.0-99.0); MONOCYTES % 7.7 % (2.0-8.0); NEUTROPHILS % 73.7 % (40.0-76.0); PLATELET 279 x1000/uL (130-400); RED CELL DISTRIBUTION WIDTH 13.9 % (11.6-14.6)
[2022-04-05] MEDS: INSULIN LISPRO 100 UNITS/ML SUBCUT SCH ×4 (06:39→17:30)
[2022-04-05 08:00] VITALS: BP 160/92
[2022-04-05] MEDS: PANTOPRAZOLE SODIUM 40 MG/VIAL IV SCH ×2 (09:25→21:54)
[2022-04-05] MEDS: DOCUSATE SODIUM SUGAR FREE 100MG/10ML UDC NG SCH (09:25)
[2022-04-05] MEDS: ASPIRIN 81MG TABLET PO SCH (09:25)
[2022-04-05] MEDS: METOPROLOL TARTRATE 25MG TABLET PO SCH ×2 (09:26→21:54)
[2022-04-05] MEDS: ENOXAPARIN 60MG/0.6ML SYR SUBCUT SCH (09:26)
[2022-04-05] MEDS: MAGNESIUM OXIDE 400MG TABLET PO SCH (09:50)
[2022-04-05 12:00] VITALS: BP 150/77
[2022-04-05 15:05] LABS: CREATINE KINASE 75 IU/L (26-192)
[2022-04-05 16:00] VITALS: BP 140/74
[2022-04-05 20:00] VITALS: BP 142/81
[2022-04-05] MEDS: ATORVASTATIN CALCIUM 40MG TABLET PO SCH (21:54)
[2022-04-06] VITALS: BP 135/70
[2022-04-06 03:15] LABS: BASOPHILS % 0.9 % (0.0-2.0); EOSINOPHILS % 0.7 % (0.0-5.0); HEMATOCRIT. 28.1 % (36.0-48.0); HEMOGLOBIN. 9.1 g/dL (12.0-16.0); LYMPHOCYTES % 17.6 % (20.0-50.0); MEAN CORPUSCULAR HEMOGLOBIN 30.2 pg (28.0-32.0); MEAN CORPUSCULAR VOLUME 93.7 fL (81.0-99.0); MEAN PLATELET VOLUME 8.6 fl (7.4-10.4); MONOCYTES % 7.5 % (2.0-8.0); NEUTROPHILS % 73.3 % (40.0-76.0); PLATELET 325 x1000/uL (130-400); RED CELL DISTRIBUTION WIDTH 13.5 % (11.6-14.6)
[2022-04-06 03:49] LABS: PROTHROMBIN TIME 10.8 sec (9.6-11.0)
[2022-04-06 04:00] VITALS: BP 138/76
[2022-04-06] MEDS: INSULIN LISPRO 100 UNITS/ML SUBCUT SCH ×4 (06:00→18:00)
[2022-04-06] MEDS: BLOOD SUGAR DIAGNOSTIC STRIP TEST SCH ×4 (06:24→18:34)
[2022-04-06] MEDS: DEXTROSE 5% WATER 1,000 ML IV SCH (09:00)
[2022-04-06] MEDS: DOCUSATE SODIUM SUGAR FREE 100MG/10ML UDC NG SCH (09:32)
[2022-04-06] MEDS: PANTOPRAZOLE SODIUM 40 MG/VIAL IV SCH (09:33)
[2022-04-06] MEDS: MAGNESIUM OXIDE 400MG TABLET PO SCH (09:33)
[2022-04-06] MEDS: METOPROLOL TARTRATE 25MG TABLET PO SCH (09:33)
[2022-04-06] MEDS ORDERED: CEFAZOLIN 1000MG PREMIX 50 ML IV SCH (11:00)
[2022-04-06] MEDS ORDERED: PROPOFOL 200MG/20ML VIAL IV ONE (12:32)
[2022-04-06] MEDS ORDERED: METOPROLOL TARTRATE 25MG TABLET PO SCH (14:00)
[2022-04-06] MEDS: METOPROLOL TARTRATE 50MG TABLET PO SCH ×2 (18:33→22:00)
[2022-04-06] MEDS: METOCLOPRAMIDE HCL 10MG/2ML VIAL IV SCH (18:34)
[2022-04-06 20:00] VITALS: BP 134/84
[2022-04-06] MEDS: ATORVASTATIN CALCIUM 40MG TABLET PO SCH (21:00)
[2022-04-07] VITALS: BP 157/79
[2022-04-07] MEDS: PANTOPRAZOLE SODIUM 40 MG/VIAL IV SCH ×3 (00:22→21:58)
[2022-04-07] MEDS: ENOXAPARIN 80MG/0.8ML SYR SUBCUT SCH ×3 (00:31→21:59)
[2022-04-07] MEDS: METOCLOPRAMIDE HCL 10MG/2ML VIAL IV SCH ×4 (00:34→18:33)
[2022-04-07] MEDS: BLOOD SUGAR DIAGNOSTIC STRIP TEST SCH ×4 (00:39→17:12)
[2022-04-07] MEDS: INSULIN LISPRO 100 UNITS/ML SUBCUT SCH ×4 (00:41→18:35)
[2022-04-07] MEDS: DEXTROSE 5% WATER 1,000 ML IV SCH ×2 (01:40→18:35)
[2022-04-07] MEDS: HYDRALAZINE 20MG/ML VIAL IV PRN (01:42)
[2022-04-07 04:00] VITALS: BP 124/73
[2022-04-07] MEDS: METOPROLOL TARTRATE 50MG TABLET PO SCH ×3 (06:00→21:59)
[2022-04-07 07:31] LABS: BASOPHILS % 0.3 % (0.0-2.0); HEMATOCRIT. 27.6 % (36.0-48.0); HEMOGLOBIN. 8.9 g/dL (12.0-16.0); MEAN CORPUSCULAR HEMOGLOBIN 30.5 pg (28.0-32.0); MEAN CORPUSCULAR VOLUME 94.4 fL (81.0-99.0); MEAN PLATELET VOLUME 8.9 fl (7.4-10.4); MONOCYTES % 9.3 % (2.0-8.0); NEUTROPHILS % 80.4 % (40.0-76.0); PLATELET 336 x1000/uL (130-400); RED BLOOD CELL COUNT 2.92 mill/uL (4.2-5.4); RED CELL DISTRIBUTION WIDTH 13.4 % (11.6-14.6)
[2022-04-07 08:00] VITALS: BP 156/90
[2022-04-07] MEDS: ASPIRIN 81MG TABLET PO SCH (08:39)
[2022-04-07] MEDS: MAGNESIUM OXIDE 400MG TABLET PO SCH (08:39)
[2022-04-07] MEDS: DOCUSATE SODIUM SUGAR FREE 100MG/10ML UDC NG SCH (08:40)
[2022-04-07 12:00] VITALS: BP 147/92
[2022-04-07 16:00] VITALS: BP 145/71
[2022-04-07 20:00] VITALS: BP 150/73
[2022-04-07] MEDS: ATORVASTATIN CALCIUM 40MG TABLET PO SCH (21:59)
[2022-04-08] VITALS: BP 116/60
[2022-04-08] MEDS: BLOOD SUGAR DIAGNOSTIC STRIP TEST SCH ×5 (00:19→23:15)
[2022-04-08] MEDS: METOCLOPRAMIDE HCL 10MG/2ML VIAL IV SCH ×3 (00:43→13:37)
[2022-04-08] MEDS: INSULIN LISPRO 100 UNITS/ML SUBCUT SCH ×5 (00:45→23:15)
[2022-04-08 04:00] VITALS: BP 144/80
[2022-04-08] MEDS: METOPROLOL TARTRATE 50MG TABLET PO SCH ×3 (06:10→21:47)
[2022-04-08 06:31] LABS: BASOPHILS % 0.6 % (0.0-2.0); EOSINOPHILS % 0.3 % (0.0-5.0); HEMATOCRIT. 27.2 % (36.0-48.0); HEMOGLOBIN. 8.7 g/dL (12.0-16.0); LYMPHOCYTES % 17.6 % (20.0-50.0); MEAN CORPUSCULAR HEMOGLOBIN 30.7 pg (28.0-32.0); MEAN CORPUSCULAR VOLUME 96.1 fL (81.0-99.0); MEAN PLATELET VOLUME 8.9 fl (7.4-10.4); MONOCYTES % 7.9 % (2.0-8.0); NEUTROPHILS % 73.6 % (40.0-76.0); PLATELET 308 x1000/uL (130-400); RED BLOOD CELL COUNT 2.83 mill/uL (4.2-5.4); RED CELL DISTRIBUTION WIDTH 13.6 % (11.6-14.6)
[2022-04-08 08:00] VITALS: BP 134/69
[2022-04-08] MEDS: ASPIRIN 81MG TABLET PO SCH (08:31)
[2022-04-08] MEDS: PANTOPRAZOLE SODIUM 40 MG/VIAL IV SCH ×2 (08:31→21:48)
[2022-04-08] MEDS: MAGNESIUM OXIDE 400MG TABLET PO SCH (08:32)
[2022-04-08] MEDS: DOCUSATE SODIUM SUGAR FREE 100MG/10ML UDC NG SCH (08:32)
[2022-04-08] MEDS: ENOXAPARIN 80MG/0.8ML SYR SUBCUT SCH ×2 (08:32→21:48)
[2022-04-08 12:00] VITALS: BP 145/74
[2022-04-08] MEDS: DESMOPRESSIN ACETATE 4MCG/ML AMP IV SCH ×2 (13:35→21:49)
[2022-04-08] MEDS: DEXTROSE 5% WATER 1,000 ML IV SCH (13:36)
[2022-04-08 16:00] VITALS: BP 125/62
[2022-04-08] MEDS: ATORVASTATIN CALCIUM 40MG TABLET PO SCH (21:48)
[2022-04-08 23:43] VITALS: BP 123/69
[2022-04-09 04:00] VITALS: BP 140/6
[2022-04-09] MEDS: BLOOD SUGAR DIAGNOSTIC STRIP TEST SCH ×3 (05:34→18:00)
[2022-04-09] MEDS: DEXTROSE 5% WATER 1,000 ML IV SCH (05:51)
[2022-04-09] MEDS: METOPROLOL TARTRATE 50MG TABLET PO SCH ×3 (05:53→22:07)
[2022-04-09] MEDS: INSULIN LISPRO 100 UNITS/ML SUBCUT SCH ×2 (06:45→11:11)
[2022-04-09 07:22] LABS: BASOPHILS % 0.7 % (0.0-2.0); EOSINOPHILS % 1.1 % (0.0-5.0); HEMATOCRIT. 23.5 % (36.0-48.0); HEMOGLOBIN. 7.5 g/dL (12.0-16.0); LYMPHOCYTES % 16.3 % (20.0-50.0); MEAN CORPUSCULAR HEMOGLOBIN 30.4 pg (28.0-32.0); MEAN CORPUSCULAR VOLUME 95.2 fL (81.0-99.0); MEAN PLATELET VOLUME 9.2 fl (7.4-10.4); MONOCYTES % 7.6 % (2.0-8.0); NEUTROPHILS % 74.3 % (40.0-76.0); PLATELET 272 x1000/uL (130-400); RED BLOOD CELL COUNT 2.47 mill/uL (4.2-5.4); RED CELL DISTRIBUTION WIDTH 13.2 % (11.6-14.6)
[2022-04-09 08:00] VITALS: BP 158/80
[2022-04-09 08:17] LABS: CHLORIDE 113 mEq/L (98-107)
[2022-04-09] MEDS: DOCUSATE SODIUM SUGAR FREE 100MG/10ML UDC NG SCH (08:52)
[2022-04-09] MEDS: PANTOPRAZOLE SODIUM 40 MG/VIAL IV SCH ×2 (08:52→22:00)
[2022-04-09] MEDS: ASPIRIN 81MG TABLET PO SCH (08:52)
[2022-04-09] MEDS: ENOXAPARIN 80MG/0.8ML SYR SUBCUT SCH ×2 (08:54→22:10)
[2022-04-09] MEDS: MAGNESIUM OXIDE 400MG TABLET PO SCH (08:55)
[2022-04-09] MEDS ORDERED: POTASSIUM CHLORIDE 20MEQ/PACKET PO NR (09:00)
[2022-04-09] MEDS: DESMOPRESSIN ACETATE 4MCG/ML AMP IV SCH (10:46)
[2022-04-09 12:00] VITALS: BP 145/80
[2022-04-09 16:00] VITALS: BP 144/74
[2022-04-09 17:45] VITALS: BP 128/72
[2022-04-09 20:00] VITALS: BP 106/80
[2022-04-09] MEDS: ATORVASTATIN CALCIUM 40MG TABLET PO SCH (22:06)
[2022-04-10] VITALS (13 sets, daily range): BP systolic 114–151; BP diastolic 60–97
[2022-04-10] MEDS: BLOOD SUGAR DIAGNOSTIC STRIP TEST SCH
[2022-04-10] MEDS: INSULIN LISPRO 100 UNITS/ML SUBCUT SCH
[2022-04-10] MEDS: METOPROLOL TARTRATE 50MG TABLET PO SCH ×3 (06:45→23:40)
[2022-04-10 06:57] LABS: BASOPHILS % 0.5 % (0.0-2.0); EOSINOPHILS % 1.9 % (0.0-5.0); LYMPHOCYTES % 17.6 % (20.0-50.0); MEAN CORPUSCULAR HEMOGLOBIN 30.6 pg (28.0-32.0); MEAN PLATELET VOLUME 9.2 fl (7.4-10.4); MONOCYTES % 6.4 % (2.0-8.0); NEUTROPHILS % 73.6 % (40.0-76.0); PLATELET 280 x1000/uL (130-400); RED BLOOD CELL COUNT 2.25 mill/uL (4.2-5.4); RED CELL DISTRIBUTION WIDTH 12.9 % (11.6-14.6)
[2022-04-10 07:04] LABS: HEMATOCRIT. 20.7 % (36.0-48.0); HEMOGLOBIN. 6.9 g/dL (12.0-16.0)
[2022-04-10 07:05] LABS: CHLORIDE 114 mEq/L (98-107)
[2022-04-10 07:12] LABS: PHOSPHORUS 2.7 mg/dL (2.5-4.9)
[2022-04-10] MEDS ORDERED: LORATADINE 10MG TABLET PO PRN (07:45)
[2022-04-10] MEDS ORDERED: DIPHENHYDRAMINE 25MG CAPSULE PO PRN (07:45)
[2022-04-10] MEDS ORDERED: ACETAMINOPHEN 325MG TABLET PO PRN (07:45)
[2022-04-10] MEDS: DOCUSATE SODIUM SUGAR FREE 100MG/10ML UDC NG SCH (09:00)
[2022-04-10] MEDS: MAGNESIUM OXIDE 400MG TABLET PO SCH (09:00)
[2022-04-10] MEDS: PANTOPRAZOLE SODIUM 40 MG/VIAL IV SCH ×2 (10:32→22:20)
[2022-04-10 10:34] LABS: HEMATOCRIT 20.9 % (36.0-48.0); HEMOGLOBIN 6.8 g/dL (12.0-16.0)
[2022-04-10] MEDS: DESMOPRESSIN ACETATE 4MCG/ML AMP IV SCH (13:00)
[2022-04-10 23:40] LABS: HEMATOCRIT 29.1 % (36.0-48.0); HEMOGLOBIN 9.4 g/dL (12.0-16.0)
[2022-04-10] MEDS: ATORVASTATIN CALCIUM 40MG TABLET PO SCH (23:42)
[2022-04-11] VITALS: BP 160/77
[2022-04-11 04:00] VITALS: BP 152/73
[2022-04-11] MEDS: BLOOD SUGAR DIAGNOSTIC STRIP TEST SCH ×4 (06:00→23:58)
[2022-04-11] MEDS: INSULIN LISPRO 100 UNITS/ML SUBCUT SCH ×4 (06:14→23:58)
[2022-04-11] MEDS: METOPROLOL TARTRATE 50MG TABLET PO SCH ×3 (06:21→21:40)
[2022-04-11 06:55] LABS: EOSINOPHILS % 0.8 % (0.0-5.0); HEMATOCRIT. 24.7 % (36.0-48.0); LYMPHOCYTES % 10.7 % (20.0-50.0); MEAN CORPUSCULAR HEMOGLOBIN 30.8 pg (28.0-32.0); MEAN CORPUSCULAR VOLUME 91.6 fL (81.0-99.0); MEAN PLATELET VOLUME 9.6 fl (7.4-10.4); MONOCYTES % 6.9 % (2.0-8.0); NEUTROPHILS % 80.6 % (40.0-76.0); PLATELET 246 x1000/uL (130-400); RED CELL DISTRIBUTION WIDTH 13.4 % (11.6-14.6)
[2022-04-11 07:09] LABS: HEMOGLOBIN. 8.3 g/dL (12.0-16.0)
[2022-04-11 07:18] LABS: CHLORIDE 111 mEq/L (98-107)
[2022-04-11 08:00] VITALS: BP 134/64
[2022-04-11] MEDS: DOCUSATE SODIUM SUGAR FREE 100MG/10ML UDC NG SCH (09:00)
[2022-04-11] MEDS: PANTOPRAZOLE SODIUM 40 MG/VIAL IV SCH ×2 (11:38→21:40)
[2022-04-11] MEDS: MAGNESIUM OXIDE 400MG TABLET PO SCH (11:39)
[2022-04-11 12:00] VITALS: BP 156/78
[2022-04-11 12:16] LABS: HEMATOCRIT 29.3 % (36.0-48.0); HEMOGLOBIN 9.5 g/dL (12.0-16.0)
[2022-04-11] MEDS: ACETAMINOPHEN 325MG TABLET PO PRN (13:59)
[2022-04-11 16:00] VITALS: BP 148/74
[2022-04-11 20:00] VITALS: BP 154/76
[2022-04-11 21:29] LABS: HEMATOCRIT 27.2 % (36.0-48.0); HEMOGLOBIN 9.3 g/dL (12.0-16.0)
[2022-04-11] MEDS: ATORVASTATIN CALCIUM 40MG TABLET PO SCH (21:40)
[2022-04-12] VITALS: BP 129/57
[2022-04-12 01:30] LABS: HEMOGLOBIN 7.8 g/dL (12.0-16.0)
[2022-04-12 04:00] VITALS: BP 121/86
[2022-04-12] MEDS: INSULIN LISPRO 100 UNITS/ML SUBCUT SCH ×4 (06:30→23:35)
[2022-04-12] MEDS: BLOOD SUGAR DIAGNOSTIC STRIP TEST SCH ×4 (06:52→23:30)
[2022-04-12 06:53] LABS: HEMATOCRIT 24.4 % (36.0-48.0); HEMOGLOBIN 8.3 g/dL (12.0-16.0)
[2022-04-12] MEDS: METOPROLOL TARTRATE 50MG TABLET PO SCH (06:55)
[2022-04-12 08:00] VITALS: BP 139/49
[2022-04-12] MEDS: MAGNESIUM OXIDE 400MG TABLET PO SCH (09:00)
[2022-04-12] MEDS: DOCUSATE SODIUM SUGAR FREE 100MG/10ML UDC NG SCH (09:00)
[2022-04-12] MEDS: PANTOPRAZOLE SODIUM 40 MG/VIAL IV SCH ×2 (09:51→21:44)
[2022-04-12 12:00] VITALS: BP 124/56
[2022-04-12] MEDS: AMLODIPINE 10MG TABLET PO SCH (13:44)
[2022-04-12 15:54] LABS: BASOPHILS % 0.8 % (0.0-2.0); EOSINOPHILS % 1.3 % (0.0-5.0); HEMATOCRIT. 24.7 % (36.0-48.0); HEMOGLOBIN. 8.3 g/dL (12.0-16.0); LYMPHOCYTES % 12.6 % (20.0-50.0); MEAN CORPUSCULAR HEMOGLOBIN 31.2 pg (28.0-32.0); MEAN CORPUSCULAR VOLUME 92.4 fL (81.0-99.0); MEAN PLATELET VOLUME 9.1 fl (7.4-10.4); MONOCYTES % 7.2 % (2.0-8.0); NEUTROPHILS % 78.1 % (40.0-76.0); PLATELET 274 x1000/uL (130-400); RED BLOOD CELL COUNT 2.67 mill/uL (4.2-5.4); RED CELL DISTRIBUTION WIDTH 13.7 % (11.6-14.6)
[2022-04-12 16:00] VITALS: BP 173/86
[2022-04-12 16:07] LABS: CHLORIDE 110 mEq/L (98-107)
[2022-04-12] MEDS: ATORVASTATIN CALCIUM 40MG TABLET PO SCH (21:00)
[2022-04-12 22:32] VITALS: BP 153/89
[2022-04-13] MEDS: BLOOD SUGAR DIAGNOSTIC STRIP TEST SCH ×3 (06:00→18:59)
[2022-04-13] MEDS: INSULIN LISPRO 100 UNITS/ML SUBCUT SCH ×3 (06:39→19:56)
[2022-04-13 06:58] LABS: BASOPHILS % 0.8 % (0.0-2.0); EOSINOPHILS % 0.4 % (0.0-5.0); HEMATOCRIT. 24.2 % (36.0-48.0); HEMOGLOBIN. 8.4 g/dL (12.0-16.0); LYMPHOCYTES % 11.4 % (20.0-50.0); MEAN CORPUSCULAR HEMOGLOBIN 31.9 pg (28.0-32.0); MEAN CORPUSCULAR VOLUME 91.5 fL (81.0-99.0); MEAN PLATELET VOLUME 8.8 fl (7.4-10.4); MONOCYTES % 8.3 % (2.0-8.0); NEUTROPHILS % 79.1 % (40.0-76.0); PLATELET 280 x1000/uL (130-400); RED BLOOD CELL COUNT 2.64 mill/uL (4.2-5.4); RED CELL DISTRIBUTION WIDTH 13.6 % (11.6-14.6)
[2022-04-13 07:33] LABS: CHLORIDE 111 mEq/L (98-107)
[2022-04-13 08:00] VITALS: BP 136/79
[2022-04-13] MEDS: PANTOPRAZOLE SODIUM 40 MG/VIAL IV SCH ×2 (10:47→22:37)
[2022-04-13] MEDS: MAGNESIUM OXIDE 400MG TABLET PO SCH (10:48)
[2022-04-13] MEDS: DOCUSATE SODIUM SUGAR FREE 100MG/10ML UDC NG SCH (10:48)
[2022-04-13] MEDS: AMLODIPINE 10MG TABLET PO SCH (10:49)
[2022-04-13 12:00] VITALS: BP 133/67
[2022-04-13 16:00] VITALS: BP 127/75
[2022-04-13] MEDS: METOCLOPRAMIDE HCL 10MG/2ML VIAL IV SCH (18:00)
[2022-04-13 20:26] VITALS: BP 148/79
[2022-04-13] MEDS ORDERED: METOPROLOL TARTRATE 25MG TABLET PO SCH (21:00)
[2022-04-13] MEDS: ATORVASTATIN CALCIUM 40MG TABLET PO SCH (22:12)
[2022-04-14] VITALS: BP 147/77
[2022-04-14] MEDS: INSULIN LISPRO 100 UNITS/ML SUBCUT SCH ×4 (00:20→18:00)
[2022-04-14] MEDS: METOCLOPRAMIDE HCL 10MG/2ML VIAL IV SCH ×4 (01:23→18:00)
[2022-04-14 04:14] VITALS: BP 156/72
[2022-04-14 07:02] LABS: BASOPHILS % 0.9 % (0.0-2.0); EOSINOPHILS % 0.9 % (0.0-5.0); HEMATOCRIT. 25.9 % (36.0-48.0); HEMOGLOBIN. 8.6 g/dL (12.0-16.0); LYMPHOCYTES % 13.6 % (20.0-50.0); MEAN CORPUSCULAR HEMOGLOBIN 30.7 pg (28.0-32.0); MEAN CORPUSCULAR VOLUME 91.8 fL (81.0-99.0); MEAN PLATELET VOLUME 8.8 fl (7.4-10.4); MONOCYTES % 9.1 % (2.0-8.0); NEUTROPHILS % 75.5 % (40.0-76.0); PLATELET 318 x1000/uL (130-400); RED BLOOD CELL COUNT 2.81 mill/uL (4.2-5.4); RED CELL DISTRIBUTION WIDTH 13.9 % (11.6-14.6)
[2022-04-14 08:00] VITALS: BP 180/72
[2022-04-14 08:59] LABS: CHLORIDE 110 mEq/L (98-107)
[2022-04-14] MEDS: DOCUSATE SODIUM SUGAR FREE 100MG/10ML UDC NG SCH (09:00)
[2022-04-14] MEDS: PANTOPRAZOLE SODIUM 40 MG/VIAL IV SCH ×2 (09:15→22:00)
[2022-04-14] MEDS: MAGNESIUM OXIDE 400MG TABLET PO SCH (09:45)
[2022-04-14] MEDS: AMLODIPINE 10MG TABLET PO SCH (09:45)
[2022-04-14 12:00] VITALS: BP 154/73
[2022-04-14] MEDS: LEVETIRACETAM 250MG TABLET PO SCH ×2 (15:27→21:59)
[2022-04-14 16:00] VITALS: BP 144/77
[2022-04-14 20:00] VITALS: BP 163/75
[2022-04-14] MEDS: ATORVASTATIN CALCIUM 40MG TABLET PO SCH (21:58)
[2022-04-14] MEDS: METOPROLOL TARTRATE 50MG TABLET PO SCH (22:04)
[2022-04-15] VITALS: BP 136/62
[2022-04-15] MEDS: METOCLOPRAMIDE HCL 10MG/2ML VIAL IV SCH ×4 (00:45→18:59)
[2022-04-15 04:00] VITALS: BP 125/55
[2022-04-15 06:47] LABS: CHLORIDE 108 mEq/L (98-107)
[2022-04-15] MEDS: INSULIN LISPRO 100 UNITS/ML SUBCUT SCH ×4 (06:56→18:25)
[2022-04-15 06:57] LABS: BASOPHILS % 0.6 % (0.0-2.0); EOSINOPHILS % 1.3 % (0.0-5.0); HEMATOCRIT. 25.7 % (36.0-48.0); HEMOGLOBIN. 8.4 g/dL (12.0-16.0); MEAN CORPUSCULAR HEMOGLOBIN 30.6 pg (28.0-32.0); MEAN CORPUSCULAR VOLUME 93.1 fL (81.0-99.0); MEAN PLATELET VOLUME 8.8 fl (7.4-10.4); MONOCYTES % 9.1 % (2.0-8.0); PLATELET 292 x1000/uL (130-400); RED BLOOD CELL COUNT 2.76 mill/uL (4.2-5.4); RED CELL DISTRIBUTION WIDTH 13.8 % (11.6-14.6)
[2022-04-15 08:00] VITALS: BP 127/68
[2022-04-15] MEDS: LEVETIRACETAM 250MG TABLET PO SCH ×2 (08:38→22:43)
[2022-04-15] MEDS: AMLODIPINE 10MG TABLET PO SCH (08:39)
[2022-04-15] MEDS: METOPROLOL TARTRATE 50MG TABLET PO SCH ×2 (08:39→22:13)
[2022-04-15] MEDS: DOCUSATE SODIUM SUGAR FREE 100MG/10ML UDC NG SCH (08:40)
[2022-04-15] MEDS: MAGNESIUM OXIDE 400MG TABLET PO SCH (08:41)
[2022-04-15] MEDS: PANTOPRAZOLE SODIUM 40 MG/VIAL IV SCH ×2 (08:46→22:17)
[2022-04-15 12:00] VITALS: BP 102/57
[2022-04-15 16:00] VITALS: BP 133/66
[2022-04-15 20:00] VITALS: BP 164/76
[2022-04-15] MEDS: ATORVASTATIN CALCIUM 40MG TABLET PO SCH (22:43)
[2022-04-16] VITALS: BP 133/67
[2022-04-16] MEDS: METOCLOPRAMIDE HCL 10MG/2ML VIAL IV SCH ×2 (00:19→07:11)
[2022-04-16] MEDS: INSULIN LISPRO 100 UNITS/ML SUBCUT SCH ×4 (00:30→18:07)
[2022-04-16 04:00] VITALS: BP 136/72
[2022-04-16 06:42] LABS: BASOPHILS % 0.7 % (0.0-2.0); EOSINOPHILS % 1.4 % (0.0-5.0); HEMATOCRIT. 27.5 % (36.0-48.0); LYMPHOCYTES % 14.8 % (20.0-50.0); MEAN CORPUSCULAR HEMOGLOBIN 30.2 pg (28.0-32.0); MEAN CORPUSCULAR VOLUME 92.6 fL (81.0-99.0); MONOCYTES % 8.4 % (2.0-8.0); NEUTROPHILS % 74.7 % (40.0-76.0); RED BLOOD CELL COUNT 2.97 mill/uL (4.2-5.4); RED CELL DISTRIBUTION WIDTH 13.8 % (11.6-14.6)
[2022-04-16 06:53] LABS: CHLORIDE 109 mEq/L (98-107)
[2022-04-16 08:00] VITALS: BP 150/65
[2022-04-16 08:58] LABS: PLATELET 274 x1000/uL (130-400)
[2022-04-16] MEDS: MAGNESIUM OXIDE 400MG TABLET PO SCH (09:00)
[2022-04-16] MEDS: AMLODIPINE 10MG TABLET PO SCH (09:14)
[2022-04-16] MEDS: LEVETIRACETAM 250MG TABLET PO SCH ×2 (09:15→20:45)
[2022-04-16] MEDS: METOPROLOL TARTRATE 50MG TABLET PO SCH ×3 (09:15→20:45)
[2022-04-16] MEDS: PANTOPRAZOLE SODIUM 40 MG/VIAL IV SCH ×2 (10:21→20:54)
[2022-04-16 12:00] VITALS: BP 122/64
[2022-04-16 12:29] LABS: CLARITY URINE CLOUDY (CLEAR); COLOR URINE YELLOW (YELLOW); KETONES URINE NEGATIVE (NEGATIVE); LEUKOCYTE ESTERASE URINE 2+ (NEGATIVE); NITRITE URINE NEGATIVE (NEGATIVE); OCCULT BLOOD URINE TRACE (NEGATIVE); PH URINE 7.5 (4.5-8.0); PROTEIN URINE 1+ (NEGATIVE)
[2022-04-16] MEDS: DOCUSATE SODIUM SUGAR FREE 100MG/10ML UDC PEG SCH ×2 (13:45→17:00)
[2022-04-16] MEDS: POLYETHYLENE GLYCOL 3350 (17GM) 1 DOSE PACK PEG SCH (14:23)
[2022-04-16 16:00] VITALS: BP 121/58
[2022-04-16 20:30] VITALS: BP 138/57
[2022-04-16] MEDS: ATORVASTATIN CALCIUM 40MG TABLET PO SCH (20:45)
[2022-04-17] VITALS: BP 136/58
[2022-04-17 04:00] VITALS: BP 123/61
[2022-04-17] MEDS: METOPROLOL TARTRATE 50MG TABLET PO SCH ×3 (06:21→22:12)
[2022-04-17] MEDS: INSULIN LISPRO 100 UNITS/ML SUBCUT SCH ×4 (06:22→22:18)
[2022-04-17 06:38] LABS: HEMATOCRIT 24.4 % (36.0-48.0); HEMOGLOBIN 8.1 g/dL (12.0-16.0); MEAN CORPUSCULAR HEMOGLOBIN 30.6 pg (28.0-32.0); MEAN CORPUSCULAR VOLUME 91.8 fL (81.0-99.0); PLATELET 251 x1000/uL (130-400); RED BLOOD CELL COUNT 2.65 mill/uL (4.2-5.4); RED CELL DISTRIBUTION WIDTH 13.4 % (11.6-14.6)
[2022-04-17 06:54] LABS: CHLORIDE 109 mEq/L (98-107)
[2022-04-17 08:00] VITALS: BP 147/62
[2022-04-17] MEDS: LEVETIRACETAM 250MG TABLET PO SCH ×2 (09:16→22:12)
[2022-04-17] MEDS: AMLODIPINE 10MG TABLET PO SCH (09:16)
[2022-04-17] MEDS: POLYETHYLENE GLYCOL 3350 (17GM) 1 DOSE PACK PEG SCH (09:17)
[2022-04-17] MEDS: MAGNESIUM OXIDE 400MG TABLET PO SCH (09:18)
[2022-04-17] MEDS: PANTOPRAZOLE SODIUM 40 MG/VIAL IV SCH ×2 (10:06→21:59)
[2022-04-17] MEDS ORDERED: DEXTROSE 50% WATER 50ML SYRINGE IV PRN (10:15)
[2022-04-17] MEDS: DOCUSATE SODIUM SUGAR FREE 100MG/10ML UDC PEG SCH ×2 (11:25→17:09)
[2022-04-17] MEDS: CEFTRIAXONE 1,000 MG in DEXTROSE 5% WATER 50 ML IV SCH (11:31)
[2022-04-17] MEDS: BLOOD SUGAR DIAGNOSTIC STRIP TEST SCH ×3 (11:45→19:41)
[2022-04-17 12:00] VITALS: BP 125/61
[2022-04-17] MEDS ORDERED: BISACODYL 10MG SUPP PR NR (13:00)
[2022-04-17 16:00] VITALS: BP 121/58
[2022-04-17 20:00] VITALS: BP 156/84
[2022-04-17] MEDS: ATORVASTATIN CALCIUM 40MG TABLET PO SCH (22:12)
[2022-04-18] VITALS: BP 153/57
[2022-04-18 05:28] VITALS: BP 154/60
[2022-04-18] MEDS: BLOOD SUGAR DIAGNOSTIC STRIP TEST SCH ×4 (05:35→21:00)
[2022-04-18] MEDS: METOPROLOL TARTRATE 50MG TABLET PO SCH ×3 (06:02→21:26)
[2022-04-18] MEDS: INSULIN LISPRO 100 UNITS/ML SUBCUT SCH ×4 (06:03→21:35)
[2022-04-18 08:00] VITALS: BP 133/84
[2022-04-18 08:17] LABS: HEMATOCRIT 26.6 % (36.0-48.0); HEMOGLOBIN 8.8 g/dL (12.0-16.0); MEAN CORPUSCULAR HEMOGLOBIN 30.4 pg (28.0-32.0); MEAN CORPUSCULAR VOLUME 91.8 fL (81.0-99.0); PLATELET 265 x1000/uL (130-400); RED CELL DISTRIBUTION WIDTH 13.5 % (11.6-14.6)
[2022-04-18 08:39] LABS: CHLORIDE 107 mEq/L (98-107)
[2022-04-18 08:54] LABS: PHOSPHORUS 3.3 mg/dL (2.5-4.9)
[2022-04-18] MEDS: DOCUSATE SODIUM SUGAR FREE 100MG/10ML UDC PEG SCH ×2 (09:00→17:00)
[2022-04-18] MEDS: PANTOPRAZOLE SODIUM 40 MG/VIAL IV SCH ×2 (10:09→21:26)
[2022-04-18] MEDS: MAGNESIUM OXIDE 400MG TABLET PO SCH (10:10)
[2022-04-18] MEDS: LEVETIRACETAM 250MG TABLET PO SCH ×2 (10:10→21:27)
[2022-04-18] MEDS: AMLODIPINE 10MG TABLET PO SCH (10:11)
[2022-04-18] MEDS: CEFTRIAXONE 1,000 MG in DEXTROSE 5% WATER 50 ML IV SCH (10:11)
[2022-04-18] MEDS: POLYETHYLENE GLYCOL 3350 (17GM) 1 DOSE PACK PEG SCH (10:37)
[2022-04-18 12:00] VITALS: BP 101/68
[2022-04-18 16:00] VITALS: BP 141/63
[2022-04-18 20:00] VITALS: BP 135/52
[2022-04-18] MEDS: ATORVASTATIN CALCIUM 40MG TABLET PO SCH (21:27)
[2022-04-19] VITALS: BP 94/57
[2022-04-19 04:00] VITALS: BP 141/56
[2022-04-19] MEDS: BLOOD SUGAR DIAGNOSTIC STRIP TEST SCH ×4 (06:34→21:00)
[2022-04-19] MEDS: METOPROLOL TARTRATE 50MG TABLET PO SCH ×3 (06:50→21:16)
[2022-04-19] MEDS: INSULIN LISPRO 100 UNITS/ML SUBCUT SCH ×4 (06:54→21:00)
[2022-04-19 08:00] VITALS: BP 120/67
[2022-04-19] MEDS: DOCUSATE SODIUM SUGAR FREE 100MG/10ML UDC PEG SCH ×2 (09:00→17:00)
[2022-04-19] MEDS: PANTOPRAZOLE SODIUM 40 MG/VIAL IV SCH ×2 (10:40→21:16)
[2022-04-19] MEDS: POLYETHYLENE GLYCOL 3350 (17GM) 1 DOSE PACK PEG SCH (10:41)
[2022-04-19] MEDS: MAGNESIUM OXIDE 400MG TABLET PO SCH (10:41)
[2022-04-19] MEDS: LEVETIRACETAM 250MG TABLET PO SCH ×2 (10:41→21:16)
[2022-04-19] MEDS: AMLODIPINE 10MG TABLET PO SCH (10:42)
[2022-04-19] MEDS: CEFTRIAXONE 1,000 MG in DEXTROSE 5% WATER 50 ML IV SCH (10:42)
[2022-04-19 12:00] VITALS: BP 117/52
[2022-04-19 16:00] VITALS: BP 131/64
[2022-04-19] MEDS: ATORVASTATIN CALCIUM 40MG TABLET PO SCH (21:16)
[2022-04-19 21:42] VITALS: BP 129/64
[2022-04-20] MEDS: BLOOD SUGAR DIAGNOSTIC STRIP TEST SCH ×4 (06:43→21:03)
[2022-04-20] MEDS: METOPROLOL TARTRATE 50MG TABLET PO SCH ×3 (06:57→21:05)
[2022-04-20] MEDS: INSULIN LISPRO 100 UNITS/ML SUBCUT SCH ×4 (07:03→21:11)
[2022-04-20 08:00] VITALS: BP 129/78
[2022-04-20] MEDS: AMLODIPINE 10MG TABLET PO SCH (08:54)
[2022-04-20] MEDS: LEVETIRACETAM 250MG TABLET PO SCH ×2 (08:54→21:04)
[2022-04-20] MEDS: MAGNESIUM OXIDE 400MG TABLET PO SCH (08:55)
[2022-04-20] MEDS: POLYETHYLENE GLYCOL 3350 (17GM) 1 DOSE PACK PEG SCH (08:56)
[2022-04-20] MEDS: DOCUSATE SODIUM SUGAR FREE 100MG/10ML UDC PEG SCH ×2 (08:56→17:00)
[2022-04-20] MEDS: PANTOPRAZOLE SODIUM 40 MG/VIAL IV SCH ×2 (10:19→22:00)
[2022-04-20] MEDS: CEFTRIAXONE 1,000 MG in DEXTROSE 5% WATER 50 ML IV SCH (10:19)
[2022-04-20 12:00] VITALS: BP 169/65
[2022-04-20 16:00] VITALS: BP_SYST 169; BP_SYST 171; BP_DIAS 63; BP_DIAS 76
[2022-04-20 20:00] VITALS: BP 150/74
[2022-04-20] MEDS: ATORVASTATIN CALCIUM 40MG TABLET PO SCH (21:04)
[2022-04-21] VITALS: BP 119/63
[2022-04-21 04:00] VITALS: BP 141/72
[2022-04-21] MEDS: BLOOD SUGAR DIAGNOSTIC STRIP TEST SCH ×4 (06:30→21:24)
[2022-04-21] MEDS: METOPROLOL TARTRATE 50MG TABLET PO SCH ×3 (06:30→21:26)
[2022-04-21] MEDS: INSULIN LISPRO 100 UNITS/ML SUBCUT SCH ×4 (06:32→21:23)
[2022-04-21 06:34] LABS: BASOPHILS % 1.3 % (0.0-2.0); EOSINOPHILS % 1.1 % (0.0-5.0); HEMATOCRIT. 26.2 % (36.0-48.0); HEMOGLOBIN. 8.9 g/dL (12.0-16.0); LYMPHOCYTES % 20.3 % (20.0-50.0); MEAN CORPUSCULAR HEMOGLOBIN 30.9 pg (28.0-32.0); MEAN CORPUSCULAR VOLUME 91.3 fL (81.0-99.0); MEAN PLATELET VOLUME 8.8 fl (7.4-10.4); MONOCYTES % 6.7 % (2.0-8.0); NEUTROPHILS % 70.6 % (40.0-76.0); PLATELET 252 x1000/uL (130-400); RED BLOOD CELL COUNT 2.87 mill/uL (4.2-5.4); RED CELL DISTRIBUTION WIDTH 13.4 % (11.6-14.6)
[2022-04-21 08:00] VITALS: BP 145/72
[2022-04-21] MEDS: DOCUSATE SODIUM SUGAR FREE 100MG/10ML UDC PEG SCH ×2 (09:00→18:08)
[2022-04-21] MEDS: AMLODIPINE 10MG TABLET PO SCH (09:05)
[2022-04-21] MEDS: LEVETIRACETAM 250MG TABLET PO SCH ×2 (09:05→21:22)
[2022-04-21] MEDS: MAGNESIUM OXIDE 400MG TABLET PO SCH (09:05)
[2022-04-21] MEDS: PANTOPRAZOLE SODIUM 40 MG/VIAL IV SCH ×2 (09:14→21:22)
[2022-04-21] MEDS: CEFTRIAXONE 1,000 MG in DEXTROSE 5% WATER 50 ML IV SCH (10:00)
[2022-04-21 12:00] VITALS: BP 116/70
[2022-04-21 14:06] LABS: CHLORIDE 108 mEq/L (98-107)
[2022-04-21] MEDS ORDERED: NALOXONE HCL 0.4MG/ML VIAL IV PRN (14:15)
[2022-04-21 16:24] VITALS: BP 140/73
[2022-04-21] MEDS: HYDROCODONE/ACETAMINOPHEN 5/325MG TABLET GT PRN (18:07)
[2022-04-21 20:00] VITALS: BP 126/67
[2022-04-22] VITALS: BP 106/75
[2022-04-22 04:30] VITALS: BP 135/85
[2022-04-22] MEDS: METOPROLOL TARTRATE 50MG TABLET PO SCH ×3 (05:33→21:02)
[2022-04-22] MEDS: BLOOD SUGAR DIAGNOSTIC STRIP TEST SCH ×4 (06:01→21:02)
[2022-04-22] MEDS: INSULIN LISPRO 100 UNITS/ML SUBCUT SCH ×4 (06:01→21:24)
[2022-04-22 08:00] VITALS: BP 151/77
[2022-04-22] MEDS: PANTOPRAZOLE SODIUM 40 MG/VIAL IV SCH ×2 (09:32→21:01)
[2022-04-22] MEDS: MAGNESIUM OXIDE 400MG TABLET PO SCH (10:01)
[2022-04-22] MEDS: DOCUSATE SODIUM SUGAR FREE 100MG/10ML UDC PEG SCH ×2 (10:01→17:28)
[2022-04-22] MEDS: LEVETIRACETAM 250MG TABLET PO SCH ×2 (10:07→21:01)
[2022-04-22] MEDS: AMLODIPINE 10MG TABLET PO SCH (10:08)
[2022-04-22] MEDS: HYDROCODONE/ACETAMINOPHEN 5/325MG TABLET GT PRN (11:00)
[2022-04-22 12:00] VITALS: BP 112/63
[2022-04-22 16:00] VITALS: BP 148/71
[2022-04-22 20:00] VITALS: BP 125/65
[2022-04-23] MEDS: BLOOD SUGAR DIAGNOSTIC STRIP TEST SCH ×4 (06:16→21:02)
[2022-04-23] MEDS: METOPROLOL TARTRATE 50MG TABLET PO SCH ×3 (06:16→20:52)
[2022-04-23] MEDS: INSULIN LISPRO 100 UNITS/ML SUBCUT SCH ×4 (06:38→21:08)
[2022-04-23 07:59] VITALS: BP 126/75
[2022-04-23] MEDS: DOCUSATE SODIUM SUGAR FREE 100MG/10ML UDC PEG SCH ×2 (09:05→17:00)
[2022-04-23] MEDS: PANTOPRAZOLE SODIUM 40 MG/VIAL IV SCH ×2 (09:05→20:53)
[2022-04-23] MEDS: MAGNESIUM OXIDE 400MG TABLET PO SCH (09:06)
[2022-04-23] MEDS: AMLODIPINE 10MG TABLET PO SCH (09:06)
[2022-04-23 12:27] VITALS: BP 119/56
[2022-04-23 12:47] LABS: BASOPHILS % 0.6 % (0.0-2.0); EOSINOPHILS % 0.8 % (0.0-5.0); HEMATOCRIT. 27.5 % (36.0-48.0); MEAN CORPUSCULAR HEMOGLOBIN 29.9 pg (28.0-32.0); MEAN CORPUSCULAR VOLUME 91.2 fL (81.0-99.0); MEAN PLATELET VOLUME 8.6 fl (7.4-10.4); MONOCYTES % 7.8 % (2.0-8.0); NEUTROPHILS % 66.8 % (40.0-76.0); PLATELET 247 x1000/uL (130-400); RED BLOOD CELL COUNT 3.01 mill/uL (4.2-5.4); RED CELL DISTRIBUTION WIDTH 13.7 % (11.6-14.6)
[2022-04-23 12:59] LABS: CHLORIDE 109 mEq/L (98-107)
[2022-04-23 13:16] LABS: PHOSPHORUS 3.3 mg/dL (2.5-4.9)
[2022-04-23] MEDS: LEVETIRACETAM 250MG TABLET PO SCH ×2 (13:34→20:52)
[2022-04-23 16:19] VITALS: BP 138/56
[2022-04-23 20:00] VITALS: BP_SYST 143
[2022-04-24 00:16] VITALS: BP 110/57
[2022-04-24 04:00] VITALS: BP 122/67
[2022-04-24] MEDS: METOPROLOL TARTRATE 50MG TABLET PO SCH ×3 (06:11→22:42)
[2022-04-24] MEDS: BLOOD SUGAR DIAGNOSTIC STRIP TEST SCH ×4 (06:17→21:00)
[2022-04-24] MEDS: INSULIN LISPRO 100 UNITS/ML SUBCUT SCH ×4 (06:27→22:44)
[2022-04-24 06:56] LABS: HEMATOCRIT 24.3 % (36.0-48.0); HEMOGLOBIN 8.2 g/dL (12.0-16.0); MEAN CORPUSCULAR HEMOGLOBIN 30.7 pg (28.0-32.0); PLATELET 207 x1000/uL (130-400); RED BLOOD CELL COUNT 2.67 mill/uL (4.2-5.4); RED CELL DISTRIBUTION WIDTH 13.5 % (11.6-14.6)
[2022-04-24 07:00] LABS: CHLORIDE 113 mEq/L (98-107)
[2022-04-24 07:08] LABS: PHOSPHORUS 3.9 mg/dL (2.5-4.9)
[2022-04-24 07:51] VITALS: BP 108/56
[2022-04-24] MEDS: LEVETIRACETAM 250MG TABLET PO SCH ×2 (08:33→22:43)
[2022-04-24] MEDS: AMLODIPINE 10MG TABLET PO SCH (08:33)
[2022-04-24] MEDS: DOCUSATE SODIUM SUGAR FREE 100MG/10ML UDC PEG SCH ×2 (08:34→17:41)
[2022-04-24] MEDS: PANTOPRAZOLE SODIUM 40 MG/VIAL IV SCH ×2 (08:34→21:00)
[2022-04-24 17:00] VITALS: BP 101/55
[2022-04-24 20:00] VITALS: BP 126/65
[2022-04-25] VITALS: BP 111/56
[2022-04-25 04:00] VITALS: BP 119/59
[2022-04-25] MEDS: BLOOD SUGAR DIAGNOSTIC STRIP TEST SCH ×4 (06:45→21:00)
[2022-04-25] MEDS: METOPROLOL TARTRATE 50MG TABLET PO SCH ×3 (07:08→22:00)
[2022-04-25] MEDS: INSULIN LISPRO 100 UNITS/ML SUBCUT SCH ×4 (07:15→21:00)
[2022-04-25 08:00] VITALS: BP 115/49
[2022-04-25] MEDS: PANTOPRAZOLE SODIUM 40 MG/VIAL IV SCH ×2 (09:35→21:00)
[2022-04-25] MEDS: AMLODIPINE 10MG TABLET PO SCH (09:35)
[2022-04-25] MEDS: DOCUSATE SODIUM SUGAR FREE 100MG/10ML UDC PEG SCH ×2 (09:41→17:26)
[2022-04-25] MEDS: LEVETIRACETAM 250MG TABLET PO SCH ×2 (11:16→21:55)
[2022-04-25 12:00] VITALS: BP 117/56
[2022-04-25 12:24] LABS: CHLORIDE 114 mEq/L (98-107)
[2022-04-25 16:00] VITALS: BP 126/72
[2022-04-25 20:19] VITALS: BP 146/70
[2022-04-26] VITALS: BP 126/66
[2022-04-26 04:00] VITALS: BP 117/65
[2022-04-26] MEDS: BLOOD SUGAR DIAGNOSTIC STRIP TEST SCH ×4 (05:59→21:53)
[2022-04-26] MEDS: METOPROLOL TARTRATE 50MG TABLET PO SCH ×3 (05:59→21:53)
[2022-04-26] MEDS: INSULIN LISPRO 100 UNITS/ML SUBCUT SCH ×4 (06:12→22:12)
[2022-04-26 08:00] VITALS: BP 159/71
[2022-04-26] MEDS: PANTOPRAZOLE SODIUM 40 MG/VIAL IV SCH ×2 (09:42→21:53)
[2022-04-26] MEDS: HYDROCODONE/ACETAMINOPHEN 5/325MG TABLET GT PRN (09:42)
[2022-04-26] MEDS: DOCUSATE SODIUM SUGAR FREE 100MG/10ML UDC PEG SCH ×2 (09:43→17:00)
[2022-04-26] MEDS: AMLODIPINE 10MG TABLET PO SCH (09:44)
[2022-04-26] MEDS: LEVETIRACETAM 250MG TABLET PO SCH ×2 (09:55→21:53)
[2022-04-26 12:00] VITALS: BP 172/82
[2022-04-26] MEDS: DEXTROSE 5% WATER 1,000 ML IV SCH (12:48)
[2022-04-26 15:57] LABS: CHLORIDE 111 mEq/L (98-107)
[2022-04-26 16:00] VITALS: BP 179/84
[2022-04-26 20:00] VITALS: BP 160/83
[2022-04-27] VITALS (7 sets, daily range): BP systolic 132–180; BP diastolic 76–85
[2022-04-27] MEDS: DEXTROSE 5% WATER 1,000 ML IV SCH ×2 (01:43→14:55)
[2022-04-27] MEDS: METOPROLOL TARTRATE 50MG TABLET PO SCH ×3 (05:47→21:41)
[2022-04-27] MEDS: BLOOD SUGAR DIAGNOSTIC STRIP TEST SCH ×4 (05:47→21:37)
[2022-04-27] MEDS: INSULIN LISPRO 100 UNITS/ML SUBCUT SCH ×4 (06:03→21:50)
[2022-04-27 07:29] LABS: BASOPHILS % 0.7 % (0.0-2.0); EOSINOPHILS % 1.5 % (0.0-5.0); HEMATOCRIT. 28.4 % (36.0-48.0); HEMOGLOBIN. 9.4 g/dL (12.0-16.0); LYMPHOCYTES % 21.2 % (20.0-50.0); MEAN CORPUSCULAR VOLUME 90.3 fL (81.0-99.0); MEAN PLATELET VOLUME 9.2 fl (7.4-10.4); MONOCYTES % 6.7 % (2.0-8.0); NEUTROPHILS % 69.9 % (40.0-76.0); PLATELET 207 x1000/uL (130-400); RED BLOOD CELL COUNT 3.15 mill/uL (4.2-5.4); RED CELL DISTRIBUTION WIDTH 13.7 % (11.6-14.6)
[2022-04-27 08:06] LABS: CHLORIDE 107 mEq/L (98-107)
[2022-04-27] MEDS: PANTOPRAZOLE SODIUM 40 MG/VIAL IV SCH ×2 (09:00→21:40)
[2022-04-27] MEDS: DOCUSATE SODIUM SUGAR FREE 100MG/10ML UDC PEG SCH ×2 (09:00→17:49)
[2022-04-27] MEDS: AMLODIPINE 10MG TABLET PO SCH (10:24)
[2022-04-27] MEDS: LEVETIRACETAM 250MG TABLET PO SCH ×2 (10:25→21:41)
[2022-04-27] MEDS: HYDRALAZINE HCL 25MG TABLET GT SCH (18:40)
[2022-04-28] VITALS: BP 163/81
[2022-04-28 04:00] VITALS: BP 170/84
[2022-04-28] MEDS: DEXTROSE 5% WATER 1,000 ML IV SCH ×2 (04:15→17:44)
[2022-04-28] MEDS: METOPROLOL TARTRATE 50MG TABLET PO SCH ×3 (05:24→21:13)
[2022-04-28] MEDS: BLOOD SUGAR DIAGNOSTIC STRIP TEST SCH ×4 (06:31→21:13)
[2022-04-28] MEDS: INSULIN LISPRO 100 UNITS/ML SUBCUT SCH ×4 (06:40→21:12)
[2022-04-28 08:00] VITALS: BP 169/78
[2022-04-28] MEDS: DOCUSATE SODIUM SUGAR FREE 100MG/10ML UDC PEG SCH ×2 (09:00→17:44)
[2022-04-28] MEDS: HYDRALAZINE HCL 25MG TABLET GT SCH ×2 (09:33→17:46)
[2022-04-28] MEDS: LEVETIRACETAM 250MG TABLET PO SCH ×2 (09:33→21:13)
[2022-04-28] MEDS: AMLODIPINE 10MG TABLET PO SCH (09:33)
[2022-04-28] MEDS: PANTOPRAZOLE SODIUM 40 MG/VIAL IV SCH ×2 (09:34→21:14)
[2022-04-28 12:00] VITALS: BP 130/80
[2022-04-28 16:00] VITALS: BP 156/95
[2022-04-28 20:00] VITALS: BP 157/73
[2022-04-29] VITALS: BP 176/76
[2022-04-29] MEDS ORDERED: CLONIDINE 0.1MG TABLET PO PRN (01:00)
[2022-04-29 04:00] VITALS: BP 121/71
[2022-04-29] MEDS: BLOOD SUGAR DIAGNOSTIC STRIP TEST SCH ×2 (06:45→11:45)
[2022-04-29] MEDS: METOPROLOL TARTRATE 50MG TABLET PO SCH ×2 (06:57→15:32)
[2022-04-29] MEDS: INSULIN LISPRO 100 UNITS/ML SUBCUT SCH ×2 (07:25→12:15)
[2022-04-29 08:00] VITALS: BP 146/65
[2022-04-29] MEDS: DOCUSATE SODIUM SUGAR FREE 100MG/10ML UDC PEG SCH (09:00)
[2022-04-29] MEDS: HYDRALAZINE HCL 25MG TABLET GT SCH (10:48)
[2022-04-29] MEDS: PANTOPRAZOLE SODIUM 40 MG/VIAL IV SCH (10:49)
[2022-04-29] MEDS: LEVETIRACETAM 250MG TABLET PO SCH (10:49)
[2022-04-29] MEDS: AMLODIPINE 10MG TABLET PO SCH (10:50)
[2022-04-29] MEDS: DEXTROSE 5% WATER 1,000 ML IV SCH (11:00)
[2022-04-29 12:00] VITALS: BP 143/70
[2022-04-29 15:55] VITALS: BP 146/65
== END 2022-04-29 17:13 | DRG 130 ==
LOC: ER 15:56 → EDBEDREQTM 16:53 → EDBEDREQ 16:53 → MICUSO 19:19 → EDBEDREQTM 19:20 → EDBEDREQ 19:20 → EDBEDREQSVC 19:20 → CVICU 03-16 12:45 → 5EST 03-22 16:16 → 7EST 03-26 01:10 → 5WST 04-09 17:44
PROVIDERS: ADMIT Internal Medicine; ATTEND Internal Medicine
PROC: 0BH17EZ Insertion of Endotracheal Airway into Trachea, Via Natural or Artificial Opening (ICD-10-PCS; principal; 2022-03-15)
PROC: 5A1955Z Respiratory Ventilation, Greater than 96 Consecutive Hours (ICD-10-PCS; 2022-03-15)
PROC: B54BZZA Ultrasonography of Right Lower Extremity Veins, Guidance (ICD-10-PCS; 2022-03-15)
PROC: 06HY33Z Insertion of Infusion Device into Lower Vein, Percutaneous Approach (ICD-10-PCS; 2022-03-15)
PROC: 02HV33Z Insertion of Infusion Device into Superior Vena Cava, Percutaneous Approach (ICD-10-PCS; 2022-03-17)
PROC: B548ZZA Ultrasonography of Superior Vena Cava, Guidance (ICD-10-PCS; 2022-03-17)
PROC: 4A00X4Z Measurement of Central Nervous Electrical Activity, External Approach (ICD-10-PCS; 2022-03-19)
PROC: 0DB78ZX Excision of Stomach, Pylorus, Via Natural or Artificial Opening Endoscopic, Diagnostic (ICD-10-PCS; 2022-04-06)
PROC: 0DH63UZ Insertion of Feeding Device into Stomach, Percutaneous Approach (ICD-10-PCS; 2022-04-06)
PROC: 30233N1 Transfusion of Nonautologous Red Blood Cells into Peripheral Vein, Percutaneous Approach (ICD-10-PCS; 2022-04-10)
DX: J96.00 Acute respiratory failure, unspecified whether with hypoxia or hypercapnia (principal); I63.9 Cerebral infarction, unspecified; I26.99 Other pulmonary embolism without acute cor pulmonale; N17.0 Acute kidney failure with tubular necrosis; G93.49 Other encephalopathy; E43 Unspecified severe protein-calorie malnutrition; K29.71 Gastritis, unspecified, with bleeding; J18.9 Pneumonia, unspecified organism; R71.0 Precipitous drop in hematocrit; M62.82 Rhabdomyolysis; E87.1 Hypo-osmolality and hyponatremia; I21.4 Non-ST elevation (NSTEMI) myocardial infarction; F20.9 Schizophrenia, unspecified; I10 Essential (primary) hypertension; E11.9 Type 2 diabetes mellitus without complications; M19.90 Unspecified osteoarthritis, unspecified site; R57.9 Shock, unspecified; E87.6 Hypokalemia; F41.9 Anxiety disorder, unspecified; E83.42 Hypomagnesemia; D64.9 Anemia, unspecified; E87.0 Hyperosmolality and hypernatremia; G40.909 Epilepsy, unspecified, not intractable, without status epilepticus; R13.12 Dysphagia, oropharyngeal phase; R74.01 Elevation of levels of liver transaminase levels; Z93.1 Gastrostomy status; Z68.29 Body mass index [BMI] 29.0-29.9, adult; Z86.73 Personal history of transient ischemic attack (TIA), and cerebral infarction without residual deficits
CPT/HCPCS: 31500; 36415; 36573; 36600; 70496; 70498; 70551; 71045; 71275; 76705; 76770; 80048; 80053; 80061; 80076; 80305; 80307; 80320; 80329; 81003; 82270; 82375; 82533; 82550; 82553; 82607; 82728; 82746; 82805; 82962; 83036; 83540; 83550; 83735; 83930; 84100; 84145; 84443; 84484; 85014; 85018; 85025; 85027; 85044; 85379; 86706; 86850; 86900; 86920; 87070; 87077; 87426; 88305; 92610; 93005; 93306; 93308; 93880; 93970; 94003; 94640; 94660; 95816; 97162; 97166; 97530; 99291; C1725; C1893; C9113; J0360; J0690; J0696; J1644; J1650; J1815; J1953; J2060; J2250; J2310; J2370; J2543; J2597; J2704; J2765; J2920; J3475; J3490; J7030; J7042; J7050; J7060; J7070; P9016; Q9967; G0480